=== PATIENT | female | born 1935 | race Caucasian/White ===

== ENCOUNTER 2017-03-11 07:14 | Inpatient (IN) ==
[2017-03-11 08:12] LABS: Basophils % 0.3 %; Eosinophils # 0.1 K/mcL (0.0-0.6); Eosinophils % 0.7 %; Hematocrit 44.1 % (35.3-44.9); Hemoglobin 13.9 g/dL (11.5-15.4); Immature Granulocytes % 0.3 % (0-4); Lymphocytes # 1.7 K/mcL (0.6-4.6); Lymphocytes % 14.1 %; Mean Corpuscular HGB Conc 31.5 g/dL (31.6-35.5); Mean Corpuscular Hemoglobin 26.9 pg (28.0-33.3); Mean Corpuscular Volume 85.5 fL (83.0-100.0); Mean Platelet Volume 11.7 fL (9.4-12.4); Monocytes # 0.8 K/mcL (0.0-1.3); Monocytes % 6.6 %; Neutrophils # 9.3 K/mcL (1.6-8.9); Platelet Count 249 K/mcL (140-400); Red Blood Count 5.16 M/mcL (3.82-4.97); Red Cell Distribution Width 15.3 % (11.5-14.5)
[2017-03-11 08:25] LABS: Alanine Aminotransferase 25 Units/L (7-52); Albumin 3.9 g/dL (3.5-5.7); Albumin/Globulin Ratio 1.3 (1.1-2.2); Alkaline Phosphatase 103 Units/L (34-104); Aspartate Amino Transferase 22 Units/L (13-39); BUN/Creatinine Ratio 22 (6-26); Bilirubin,Total 0.9 mg/dL (0.3-1.0); Blood Urea Nitrogen 20 mg/dL (8-23); Calcium 9.4 mg/dL (8.6-10.3); Carbon Dioxide 25 mEq/L (23-29); Chloride 106 mEq/L (98-107); Globulin 2.9 g/dL (2.4-3.5); Glucose 110 mg/dL (70-105); Osmolality,Calculated 295 (280-300); Sodium 141 mEq/L (136-145); Total Protein 6.8 g/dL (6.4-8.9); eGFR For African Americans > 60 (> 60); eGFR For Non-African Americans 60 (> 60)
[2017-03-11 08:32] LABS: Thyroid Stimulating Hormone 4.167 mcIU/mL (0.340-5.600)
[2017-03-11 09:57] LABS: Bilirubin,Urine Negative (Negative); Blood,Urine Negative (Negative); Clarity,Urine Turbid (Clear); Color,Urine Dark Yellow (Yellow); Glucose,Urine (UA) Normal (Normal); Ketones,Urine Negative (Negative); Leukocyte Esterase,Urine Large (Negative); Nitrite,Urine Positive (Negative); PH,Urine 6.5 pH Units (5.0-8.0); Protein,Urine 30 mg/dL (Neg-Trace); Specific Gravity,Urine 1.022 (1.010-1.025); Urobilinogen,Urine Normal (Normal)
[2017-03-11 09:59] LABS: Bacteria,Urine Many per hpf (None-Few); Hyaline Casts,Urine Moderate per lpf (None-Few); Squamous Epithelial Cell,Urine Many per lpf (None-Few); WBC,Urine 50-100 per hpf (0-3)
[2017-03-11] MEDS ORDERED: Naloxone 0.4 MG/ML INJ IVP PRN (11:22)
[2017-03-11] MEDS ORDERED: *HR* OxyCODONE Immed Rel 5 MG TABLET PO PRN (11:22)
[2017-03-11] MEDS ORDERED: 0.9 % Sodium Chloride 1,000 ML IVC SCH (11:30)
[2017-03-11] MEDS ORDERED: cefTRIAXone 1,000 MG in Water for inj. (sterile) 10 ML IVPB SCH (12:00)
[2017-03-11] MEDS ORDERED: Aspirin 81 MG TAB.CHEW PO ONE (12:16)
[2017-03-11] MEDS ORDERED: *HR* Metoprolol 5 MG/5 ML VIAL IVP ONE ×2 (12:19→16:27)
--- NOTE | 2017-03-11 12:19 | Internal Med History&Physical ---
Date of Encounter: 03/11/17 Time of Encounter: 12:16 Assessment and Plan (1) UTI (urinary tract infection) Current visit: Yes Status: Suspected Suspected Patient is asymptomatic UA with positive nitrites, LE< many SQ cells, mid hematuria Patient does not have sepsis-HR is elevated from Afib, she has missed her day's dose of BB, no fever, WBC 68705. Oral mucosa is dry Send Urine culture now-not previously sent Follow culture reports Continue Ceftriaxone 1g daily Qualifiers: Urinary tract infection type: acute cystitis Hematuria presence: with hematuria Qualified Code(s): N30.01 - Acute cystitis with hematuria (2) Weakness Current visit: Yes Status: Acute Patient with chronic weakness, possibly related to her LEwy-BOdy dementia, associated with recurrent falls. Exacerbation or worsening may be due to UTI Per family, patient is receiving outpatient occupational and physical therapy. Fall precautions. Physical therapy and occupational therapy review. (3) Afib Current visit: Yes Status: Chronic Controlled at presentation, due to patient missing her medications. PCM present Given 1 L saline gently. Give metoprolol IV 1 time. Resume home medications. Patient not on anticoagulation due to recurrent falls. Continue aspirin only. Qualifiers: Atrial fibrillation type: chronic Qualified Code(s): I48.2 - Chronic atrial fibrillation (4) Lewy body dementia with behavioral disturbance Current visit: Yes Status: Chronic High risk for delirium Per family, patient has hx of agitation Continue home meds Haldol prn High risk for delirium, encourage orientation and reorientation (5) Hypertension Current visit: Yes Status: Chronic Controlled Continue home meds Qualifiers: Hypertension type: essential hypertension Qualified Code(s): I10 - Essential (primary) hypertension (6) DVT prophylaxis Current visit: Yes Status: Acute SQ heparin (7) Code status needs review Current visit: Yes Status: Acute Patient's states patient is DNR and he has paperwork, Dr. Man at the bedside looked extremely surprised and became very emotional and crying that she is not aware of this decision. However, the patient's is her power of [place] attorney and they have a living will, he has the papers at home and he will bring the papers later today, and we will address code status at that time. For now the patient is full code. Internal Medicine - H&P: HPI Chief complaint: Weakness Admitted From: Home Plans for Post Hospital Care: Home History of present illness: Ms. Osorio is a 81 year old female seen and evaluated at bedside with her and daughter She has a past medical history of chronic atrial fibrillation not on anticoagulation due to recurrent falls and risk of bleeding, PCM present, hypertension, and neuropathy dementia. She presented in continue her family with complaints of weakness, uncontrolled blood pressure. However, her blood pressure has been controlled since admission. The patient's family also complained of the patient's progressive weakness, and worsening in the past 3 days Her he has had to be holding onto her to prevent her from falling and this has been worsened in the past 3 days. She has chronic weakness and is getting physical therapy at an outside facility. She has no other symptoms. Review of systems is unremarkable. We will call from admission reveals tachycardia, white blood cell 12,000 urine analysis with nitrites and large leukocyte esterase, however gearing is also has lots of squamous cells. Head CT shows chronic small vessel disease changes. The patient is clinically stable She has not taken any of her medications today due to being in the ER. She will be placed on observation for UTI management and review by PTOT for weakness Patient's states she is DNR/DNI and has paperwork for that, however, her daughter was very surprised and emotional about this information, her is her POA. We will place the patient on full code till her brings her paperwork, the patient has dementia and does not have decisional capacity. Plan of care discussed with family, verbalized understanding. Past Med Surg Social Fam HX - Past Medical History Medical history: atrial fibrillation, dementia, GERD, hyperlipidemia, hypertension, valvular heart disease Psychiatric history: no psych history - Past Surgical History Surgical History: cataract, hip replacement, pacemaker/AICD - Social History Smoking Status: Never smoker Smokeless Tobacco Status: No Alcohol use: none Drug use: none Internal Medicine - H&P: Meds Aspirin 81 mg PO DAILY 01/02/16 [History] Atorvastatin [Lipitor] 40 mg PO HS 01/02/16 [History] Bupropion HCl [Wellbutrin Xl] 300 mg PO QAM 01/02/16 [History] Calcium Carbonate/Vitamin D3 [Calcium 500 + Vit D 200 Caplet] 1 each PO DAILY [History] Cyanocobalamin (Vitamin B-12) [Vitamin B12] 1,000 mcg PO DAILY 01/02/16 [History ] Docusate [Colace] 100 mg PO DAILY PRN 01/02/16 [History] FLUoxetine HCl [Prozac] 10 mg PO QAM 01/02/16 [History] Folic Acid 0.4 mg PO DAILY 01/02/16 [History] Metoprolol [Lopressor] 75 mg PO BID 01/02/16 [History] Quetiapine Fumarate [Seroquel] 50 mg PO HS 01/02/16 [History] 3 Allergy/AdvReac Type Severity Reaction Status Date / Time No Known Allergies Allergy Verified 03/11/17 07:27 All Systems PM: A 10-system review of systems was performed and is negative for pertinent findings except as documented above in the HPI. - Constitutional Constitutional: no chills, no fever(s), no night sweats - EENT Eyes: no change in vision, no discharge, no pain, no photophobia Ears: no ear discharge, no ear pain, no tinnitus Nose, mouth and throat: no dysphagia, no nasal discharge, no neck pain, no sore throat - Cardiovascular Cardiovascular ROS IM: no chest pain, no diaphoresis, no dyspnea, no lightheadedness, no palpitations, no syncope - Respiratory Respiratory: no cough, no dyspnea, no wheezing, no excessive phlegm production - Gastrointestinal Gastrointestinal: no abdominal pain, no diarrhea, no hematemesis, no hematochezia, no melena, no nausea, no vomiting - Genitourinary Genitourinary: no change in urinary stream, no dysuria, no flank pain, no hematuria - Musculoskeletal Musculoskeletal ROS IM: muscle weakness - Integumentary Integumentary IM: no rash, no unusual bruising - Neurological Neurological ROS: memory loss, no confusion, no convulsions, no focal weakness, no numbness, no tingling, no tremor(s) - Hematologic/Lymphatic Hematologic/Lymphatic: no easy bruising - Constitutional Vitals: Temp Pulse Resp BP Pulse Ox 98.0 F 89 20 156/96 94 03/11/17 07:17 03/11/17 08:00 03/11/17 08:00 03/11/17 08:00 03/11/17 08:00 General appearance: Present: A&O X 2, pleasant, no acute distress - Head Head exam: Present: atraumatic, normocephalic - Eye Eye exam: Present: PERRL, conjuntiva pink, sclera anicteric Pupils: Present: PERRL - Neck Neck exam general surgery: Present: supple, trachea midline. Absent: lymphadenopathy - Respiratory Respiratory exam: Present: CTAB. Absent: accessory muscle use, rales, rhonchi, wheezes Additional comments: PCM pocket clean and dry - Cardiovascular Cardiovascular exam: Present: irregular rhythm, +S1, +S2, tachycardia. Absent: diastolic murmur, gallop, rubs, systolic murmur - GI/Abdominal GI/Abdominal exam: Present: normal bowel sounds, soft, no peritoneal signs. Absent: distended, tenderness - Extremities Exam Extremities exam: Present: warm, radial pulses palpable and symmetrical. Absent : calf tenderness, cyanotic, pedal edema - Neurological Exam Neurological exam: Present: alert, CN II-XII intact, oriented X3, no focal deficits. Absent: pronater drift, facial droop, speech deficit - Skin Skin exam: Present: dry, intact Internal Med - H&P Results - Labs CBC & Chem 7: 03/11/17 07:47 03/11/17 07:47 Labs: Short CBC 03/11/17 Range/Units 07:47 WBC 12.0 H (4.3-11.1) K/mcL Hgb 13.9 (11.5-15.4) g/dL Hct 44.1 (35.3-44.9) % Plt Count 249 (140-400) K/mcL Neutrophils # 9.3 H (1.6-8.9) K/mcL BMP 03/11/17 07:47 Sodium 141 Potassium 4.0 Chloride 106 Carbon Dioxide 25 BUN 20 Creatinine 0.90 Glucose 110 H Calcium 9.4 Cardiac Enzymes 03/11/17 Range/Units 07:47 Troponin I < 0.03 (< 0.04) ng/mL Liver Function 03/11/17 Range/Units 07:47 Total Bilirubin 0.9 (0.3-1.0) mg/dL AST 22 (13-39) Units/L ALT 25 (7-52) Units/L Alkaline Phosphatase 103 (34-104) Units/L Albumin 3.9 (3.5-5.7) g/dL Urine 03/11/17 Range/Units 09:45 Urine Color Dark Yellow (Yellow) Urine Clarity Turbid A (Clear) Urine pH 6.5 (5.0-8.0) pH Units Ur Specific [place] 1.022 (1.010-1.025) Urine Protein 30 H (Neg-Trace) mg/dL Urine Glucose (UA) Normal (Normal) mg/dL - Impressions ITS Impressions Chest X-Ray 03/11/17 07:38 IMPRESSION: Mild bibasilar airspace disease, which may be due to atelectasis, edema or pneumonia. Suggestion of a trace amount of pleural fluid D/ / Doc Siu MD / Doc Siu MD Interpreting Provider: Doc Siu MD Head CT 03/11/17 07:38 IMPRESSION: No acute intracranial abnormality. Findings compatible with age related atrophy and likely chronic small vessel ischemic change. D/ / Arnav Antonio MD / Arnav Antonio MD Interpreting Provider: Arnav Antonio MD
[2017-03-11] MEDS: cefTRIAXone 1,000 MG in Water for inj. (sterile) 10 ML IVPB SCH (16:06)
[2017-03-12] MEDS: Ondansetron 4 MG/2 ML VIAL IVP PRN (00:38)
[2017-03-12 04:56] LABS: Basophils % 0.2 %; Eosinophils # 0.1 K/mcL (0.0-0.6); Eosinophils % 0.4 %; Hemoglobin 13.6 g/dL (11.5-15.4); Immature Granulocytes % 0.5 % (0-4); Lymphocytes # 2.1 K/mcL (0.6-4.6); Lymphocytes % 15.9 %; Mean Corpuscular HGB Conc 31.6 g/dL (31.6-35.5); Mean Corpuscular Hemoglobin 27.1 pg (28.0-33.3); Mean Corpuscular Volume 85.7 fL (83.0-100.0); Mean Platelet Volume 11.8 fL (9.4-12.4); Monocytes # 0.8 K/mcL (0.0-1.3); Monocytes % 6.3 %; Neutrophils # 9.9 K/mcL (1.6-8.9); Platelet Count 237 K/mcL (140-400); Red Blood Count 5.02 M/mcL (3.82-4.97); Red Cell Distribution Width 15.5 % (11.5-14.5); Segmented Neutrophils % 76.7 %
[2017-03-12 05:27] LABS: BUN/Creatinine Ratio 24 (6-26); Blood Urea Nitrogen 22 mg/dL (8-23); Carbon Dioxide 22 mEq/L (23-29); Chloride 111 mEq/L (98-107); Glucose 119 mg/dL (70-105); Osmolality,Calculated 300 (280-300); Potassium 3.7 mEq/L (3.5-5.1); Sodium 143 mEq/L (136-145); eGFR For African Americans > 60 (> 60); eGFR For Non-African Americans 60 (> 60)
[2017-03-12] MEDS: *HR* Enoxaparin 40 MG/0.4 ML SYRINGE SQ SCH (05:59)
[2017-03-12] MEDS: FLUoxetine HCl 10 MG CAPSULE PO SCH (08:34)
[2017-03-12] MEDS: Aspirin 81 MG TAB.CHEW PO SCH (08:34)
[2017-03-12] MEDS: BuPROPion XL (24 HR) 150 MG TABLET PO SCH (08:34)
[2017-03-12] MEDS: Cholecalciferol (D-3) 1,000 UNIT TABLET PO SCH (08:34)
[2017-03-12] MEDS: Cyanocobalamin (B-12) 1,000 MCG TABLET PO SCH (08:35)
[2017-03-12] MEDS: Folic Acid 1 MG TABLET PO SCH (08:35)
[2017-03-12] MEDS ORDERED: NON-FORMULARY MEDICATION 1 EACH EACH (Calcium Carbonate/Vitamin D3 [Calcium 500-Vit D3 200 PO SCH (09:00)
--- NOTE | 2017-03-12 14:30 | Cardiology Consult Note ---
<Sunil Fan - Last Filed: 03/12/17 14:28> Date of Encounter: 03/12/17 Time of Encounter: 14:28 Assessment and Plan (1) Atrial fibrillation with RVR Current Visit: Yes Status: Acute Patient is experiencing shortness of breath, dizziness, palpitations. He is in A. fib with RVR with a rate in the 110s to 120s. EKG reveals nonspecific ST changes in the leads 2, V5, V6. This is most likely due to the atrial fibrillation with RVR. Patient is hypertensive at 149/101. Chest x-ray is non- determinant revealing atelectasis vs edema vs pneumonia. Patient does have elevated BNP at 55. However, clinically, patient does not appear to be edematous. Lung exam does not reveal rales. Patient does however have a urinary tract infection. She is currently being treated with Rocephin per hospitalist team. The patient is most likely in atrial fibrillation with RVR secondary to her urinary tract infection. TSH was obtained and was within normal limits. Give 15 mg IV push Cardizem. Start Cardizem drip 5 mcg per minute. Titrate to target heart rate less than 100. Monitor blood pressure. Continue aspirin 81 mg daily. Patient is on 40 mg subcutaneous once daily Lovenox for DVT prophylaxis. There was discussion recently about discontinuation of anticoagulation secondary to risk for bleeding secondary to patient's recurrent falls. Family decided to discontinue anticoagulation and remain on aspirin at that time. Lopressor 75 mg twice daily Atorvastatin 40 mg once daily (2) UTI (urinary tract infection) Current Visit: Yes Status: Suspected Continue management per hospitalist Qualifiers: Urinary tract infection type: acute cystitis Hematuria presence: with hematuria Qualified Code(s): N30.01 - Acute cystitis with hematuria (3) Nausea and vomiting Current Visit: No Status: Acute Patient states this has resolved. Patient does have negative CT scan of head. Qualifiers: Vomiting type: unspecified Vomiting Intractability: non-intractable Qualified Code(s): R11.2 - Nausea with vomiting, unspecified Discussion w patient/family: The assessment and plan as outlined above was discussed with the patient and/or family members who expressed understanding and agreement. All questions were answered. Thank you for involving us in the care of your patient. Please call with any questions. History of Present Illness Consult date: 03/12/17 Requesting physician: Hortencia Davis Consult reason: a-fib with RVR Chief complaint: SOB, palpitations History of present illness: Ms. Osorio is a 81 year old female with past medical history of lupus or dementia , hypothyroidism, atrial fibrillation, placement of atrial pacemaker, who we were consulted because of patient being in A. fib with RVR. Patient states that her last 4 days, she has had shortness of breath, dizziness, feeling palpitations in her chest. She denies any chest pain, pressure, tightness. Patient denies any cough, hemoptysis, history of DVTs, PE, unilateral leg swelling. Patient does have known history of atrial fibrillation, however, has never symptomatic with it. Patient was having episodes of nausea vomiting last week and was recently diagnosed with urinary tract infection in the hospital. Past Med Surg Social Fam HX - Past Medical History Medical history: atrial fibrillation, dementia, GERD, hyperlipidemia, hypertension, valvular heart disease Psychiatric history: no psych history - Past Surgical History Surgical History: cataract, hip replacement, pacemaker/AICD - Social History Smoking Status: Never smoker Smokeless Tobacco Status: No Alcohol use: none Drug use: none Medications and Allergies Aspirin 81 mg PO DAILY 01/02/16 [History] Atorvastatin [Lipitor] 40 mg PO HS 01/02/16 [History] Bupropion HCl [Wellbutrin Xl] 300 mg PO QAM 01/02/16 [History] Calcium Carbonate/Vitamin D3 [Calcium 500 + Vit D 200 Caplet] 1 each PO DAILY [History] Cyanocobalamin (Vitamin B-12) [Vitamin B12] 1,000 mcg PO DAILY 01/02/16 [History ] Docusate [Colace] 100 mg PO DAILY PRN 01/02/16 [History] FLUoxetine HCl [Prozac] 10 mg PO QAM 01/02/16 [History] Folic Acid 0.4 mg PO DAILY 01/02/16 [History] Metoprolol [Lopressor] 75 mg PO BID 01/02/16 [History] Quetiapine Fumarate [Seroquel] 50 mg PO HS 01/02/16 [History] Vit C/E/Zn/Coppr/Lutein/Zeaxan [Preservision Areds 2 Softgel] 1 cap PO BID 03/11 [History] Diltiazem HCl [Cardizem LA] 300 mg PO DAILY 03/13/17 [History] Galantamine [Razadyne] 8 mg PO BID 03/13/17 [History] 3 Allergy/AdvReac Type Severity Reaction Status Date / Time No Known Allergies Allergy Verified 03/11/17 07:27 All Systems Review: A 10-system review of systems was performed and is negative for pertinent findings except as documented above in the HPI. - Constitutional Constitutional: fatigue, frequent falls, headache(s) - Cardiovascular Cardiovascular: diaphoresis, dyspnea at rest, dyspnea on exertion, irregular heart rhythm, lightheadedness, palpitations, no chest pain at rest, no chest pain with exertion, no leg edema - Respiratory Respiratory: dyspnea, no cough, no hemoptysis, no wheezing - Gastrointestinal Gastrointestinal: nausea, no abdominal pain - Neurological Neurological: dizziness Physical Examination Vital Signs, Last 4 Hours Temp Pulse Resp BP Pulse Ox 03/12/17 11:56 97.7 F 122 18 149/101 95 General: Conversant, No Apparent Distress HEENT: Atraumatic, Normocephaly Neck: No JVD Cardiac: No Murmur, Other (Telemetry:: A. fib with RVR in the 110s to 120s) Lungs: Normal Breath Sounds, No Wheeze, Rales, Rhonchi Neuro: Alert and responsive, No focal deficits noted Abdomen: Soft, Non-Tender Skin: No rashes noted on visualized skin Musculoskeletal: No Chest Wall Tenderness Extremities: No Edema Results 03/12/17 03:55 03/12/17 03:55 Lab Results 03/12/17 03/12/17 03:55 03:55 WBC 12.9 H Hgb 13.6 Hct 43.0 Plt Count 237 Sodium 143 Potassium 3.7 Chloride 111 H Carbon Dioxide 22 L BUN 22 Creatinine 0.90 Glucose 119 H Calcium 9.0 Consult Discharge Plan - Plan Referrals: [facility] [place] [Primary Care Provider] - <Ethan Grant - Last Filed: 03/13/17 17:53> Date of Encounter: 03/12/17 Time of Encounter: 17:00 - Attending Attestation I examined this patient and my medical decision-making was reviewed with the Resident Physician. I agree with the documented findings, disposition and treatment plan as described except to the extent set forth below. CC palpitations Pt presents with four day history of progressive shortness of breath, dizziness and palpitations. She denies chest pain. She has a history of asymptomatic atrial fib. Pt also complains of nausea and emesis x 3 days. In the ER she was started on IV diltiazem with improved control of A fib with RVR and improvement in shortness of breath. PE: reviewed above, agree IMP: 1. Paroxysmal Afib with RVR, ventricular response rate controlled on IV diltiazem, will interrogate PPMK to evaluate a fib burden, continue po metoprolol tartrate, switch to po diltiazem. Will order echocardiogram to evaluate LV function, left atrial size 2. UTI: cultures pending, antibiotics per primary service 3. Nausea and emesis: secondary to UTI, improving. 4. Hypertension: better controlled on current medications Assessment and Plan Discussion w patient/family: The assessment and plan as outlined above was discussed with the patient and/or family members who expressed understanding and agreement. All questions were answered. Thank you for involving us in the care of your patient. Please call with any questions. History of Present Illness History of present illness: Ms. Osorio is a 81 year old female All Systems Review: A 10-system review of systems was performed and is negative for pertinent findings except as documented above in the HPI. Physical Examination Vital Signs, Last 4 Hours Temp Pulse Resp BP Pulse Ox 03/13/17 16:02 97.9 F 100 15 130/83 91 03/13/17 14:44 97.5 F L 104 16 141/84 95 Results 03/13/17 13:51 03/13/17 13:51 Lab Results 03/13/17 03/13/17 03/13/17 09:22 13:51 13:51 WBC 13.2 H Hgb 12.7 Hct 39.9 Plt Count 216 D-Dimer 1631 H Sodium 137 Potassium 3.7 Chloride 108 H Carbon Dioxide 17 L BUN 19 Creatinine 0.74 Glucose 103 Calcium 9.0 Magnesium 1.8
[2017-03-12] MEDS: cefTRIAXone 1,000 MG in Water for inj. (sterile) 10 ML IVPB SCH (14:31)
[2017-03-12] MEDS: Acetaminophen 325 MG TABLET PO PRN (14:56)
--- NOTE | 2017-03-12 17:20 | Electrocardiograph Report ---
[address] [address] Test Date: 2017-03-11 Pat Name: Farzad Head Department: 104 Room: 3B32 Gender: F Drafter Electrical: : 1935 Requested By: Nancy Looney Order Number: [id number] Reading MD: Agustin Nguyễn MD Measurements Intervals [place] Rate: 102 P: -75 [place]: 162 QRS: -57 QRSD: 177 T: 117 QT: 442 QTc: 500 Interpretive Statements ELECTRONIC ATRIAL PACEMAKER ELECTRONIC VENTRICULAR PACEMAKER Electronically Signed On 03-12-2017 17:18:50 EST by Agustin Nguyễn MD
--- NOTE | 2017-03-12 17:39 | Internal Med Progress Note ---
Date of Encounter: 03/12/17 Time of Encounter: 10:30 - Assessment and plan (1) Atrial fibrillation with RVR Current Visit: Yes Status: Acute Assessment and plan: per hx. HR initially controlled however found to be in a-fib with RVR in the afternoon. Cardizem gtt started. Hold on anticoagulation. Cardiology consulted. Cont home BB (2) UTI (urinary tract infection) Current Visit: Yes Status: Suspected Assessment and plan: UA with positive nitrites, LE< many SQ cells, mid hematuria. Cont iV rocpehin. Monitor urine cx. Qualifiers: Urinary tract infection type: acute cystitis Hematuria presence: with hematuria Qualified Code(s): N30.01 - Acute cystitis with hematuria (3) Hypertension Current Visit: Yes Status: Chronic Assessment and plan: per hx. BP apparently uncontrolled at home with SBPs in 180s. BP controlled while inpatient. Cont home BP medication. Monitor BP and titrate PRN Qualifiers: Hypertension type: essential hypertension Qualified Code(s): I10 - Essential (primary) hypertension (4) Lewy body dementia with behavioral disturbance Current Visit: Yes Status: Chronic Assessment and plan: per hx. Mentation appears at baseline. Supportive care (5) DVT prophylaxis Current Visit: Yes Status: Acute Assessment and plan: lovenox - Subjective Interval history: Seen and examined at bedside. Patient is new to me information obtained from mostly chart review as patient is demented and does no was ambulating at home with . Daughter also reports patient's Patient says she feels fine on my exam. mentation appears at baseline. - Constitutional Vitals: Temp Pulse Resp BP Pulse Ox 97.7 F 122 18 149/101 95 03/12/17 11:56 03/12/17 11:56 03/12/17 11:56 03/12/17 11:56 03/12/17 11:56 General appearance: Present: A&O X 2, pleasant, no acute distress - Head Head exam: Present: atraumatic, normocephalic - Eye Eye exam: Present: PERRL, conjuntiva pink, sclera anicteric Pupils: Present: PERRL - Neck Neck exam general surgery: Present: supple, trachea midline. Absent: lymphadenopathy - Respiratory Respiratory exam: Present: CTAB. Absent: accessory muscle use, rales, rhonchi, wheezes - Cardiovascular Cardiovascular exam: Present: RRR, +S1, +S2. Absent: diastolic murmur, gallop, rubs, systolic murmur - GI/Abdominal GI/Abdominal exam: Present: normal bowel sounds, soft, no peritoneal signs. Absent: distended, tenderness - Extremities Exam Extremities exam: Present: warm, radial pulses palpable and symmetrical. Absent : calf tenderness, cyanotic, pedal edema - Neurological Exam Neurological exam: Present: CN II-XII intact, oriented X3, no focal deficits. Absent: pronater drift, facial droop, speech deficit - Skin Skin exam: Present: dry, intact Internal Medicine: Result - Labs CBC & Chem 7: 03/12/17 03:55 03/12/17 03:55 Labs: Short CBC 03/12/17 Range/Units 03:55 WBC 12.9 H (4.3-11.1) K/mcL Hgb 13.6 (11.5-15.4) g/dL Hct 43.0 (35.3-44.9) % Plt Count 237 (140-400) K/mcL Neutrophils # 9.9 H (1.6-8.9) K/mcL BMP 03/12/17 03:55 Sodium 143 Potassium 3.7 Chloride 111 H Carbon Dioxide 22 L BUN 22 Creatinine 0.90 Glucose 119 H Calcium 9.0 Consult Discharge Plan - Plan Referrals: Wu Alexandra MD [Primary Care Provider] -
--- NOTE | 2017-03-12 22:53 | Emergency Department Note ---
Disposition Clinical Impression: Weakness Disposition: Admitted As Inpatient General Adult HPI - General Chief complaint: ED Nausea/Vomiting/Diarrhea Stated complaint: High BP/Weakness/Vomiting Time Seen by Provider: 03/11/17 07:23 Source: family Limitations: no limitations Nursing Notes Reviewed: Yes Vital Signs Reviewed: Yes - History of Present Illness HPI Narrative: 81-year-old female presents with concern for hypertension as well as weakness. She has complaints of blood pressure that has been in the 130s systolic over the past 24-48 hours. She has close monitoring by her surveying crew rodman of her blood pressure. She is concerned that her weakness is caused by her underlying hypertension. She denies nausea, vomiting, recent fall, focal weakness. General: No acute distress HEENT: Pupils equal and reactive to light, extraoccular muscle movement is normal, TMS are clear bilaterally. Heart: RRR, No murmor rub or gallop Lungs: lungs clear, no wheezing, rales or ronchi. ABD: SNT, no focal areas or tenderness, no guarding or rebound tenderness. Extremities: No cyanosis, clubbing or edema Neuro: CN 2-12 in tact, no focal deficit. strength 5/5. Medical decision making Findings consistent with urinary tract infection and weakness. No focal neurological deficit. CT scan shows no acute findings. We will start ceftriaxone, proceed with admission for treatment of urinary tract infection in the setting of weakness Pain Scale: 0 - Related Data Home Medications Medication Instructions Recorded Confirmed Aspirin 81 mg PO DAILY 01/02/16 03/11/17 Atorvastatin [Lipitor] 40 mg PO HS 01/02/16 03/11/17 Bupropion HCl [Wellbutrin Xl] 300 mg PO QAM 01/02/16 03/11/17 Calcium Carbonate/Vitamin D3 1 each PO DAILY 01/02/16 03/11/17 [Calcium 500 + Vit D 200 Caplet] Cyanocobalamin (Vitamin B-12) 1,000 mcg PO DAILY 01/02/16 03/11/17 [Vitamin B12] Docusate [Colace] 100 mg PO DAILY PRN 01/02/16 03/11/17 FLUoxetine HCl [Prozac] 10 mg PO QAM 01/02/16 03/11/17 Folic Acid 0.4 mg PO DAILY 01/02/16 03/11/17 Metoprolol [Lopressor] 75 mg PO BID 01/02/16 03/11/17 Quetiapine Fumarate [Seroquel] 50 mg PO HS 01/02/16 03/11/17 Vit C/E/Zn/Coppr/Lutein/Zeaxan 1 cap PO BID 03/11/17 03/11/17 [Preservision Areds 2 Softgel] Allergies Allergy/AdvReac Type Severity Reaction Status Date / Time No Known Allergies Allergy Verified 03/11/17 07:27 All systems ED: reviewed and negative except as stated. Review of Systems: As Per HPI Past Medical History - Past Medical History Medical history: Reports: atrial fibrillation, dementia, GERD, hyperlipidemia, hypertension, valvular heart disease Surgical history: Reports: cataract, hip replacement, pacemaker/AICD Psychiatric history: Reports: no psych history TECHNICAL SUPPORT DIRECTOR history: Reports: no TECHNICAL SUPPORT DIRECTOR history - Social History Smoking Status: Never smoker Smokeless Tobacco Status: No Alcohol use: Reports: none Drug use: Reports: none Physical Exam - General Limitations: no limitations General appearance: alert, in no apparent distress Course Vital Signs Temperature 98.0 F 03/11/17 07:17 Pulse Rate 76 03/11/17 07:17 Respiratory Rate 16 03/11/17 07:17 Blood Pressure 129/94 03/11/17 07:17 O2 Sat by Pulse Oximetry 95 03/11/17 07:17 Temperature 97.8 F 03/12/17 22:42 Pulse Rate 95 03/12/17 22:42 Respiratory Rate 17 03/12/17 22:42 Blood Pressure 131/82 03/12/17 22:42 O2 Sat by Pulse Oximetry 95 03/12/17 22:42 Oxygen Delivery Oxygen Delivery Room Air Medical Decision Making - Lab Data Result diagrams: 03/12/17 03:55 03/12/17 03:55 Lab Results 03/11/17 03/11/17 03/11/17 Range/Units 07:47 07:47 07:47 WBC 12.0 H (4.3-11.1) K/mcL RBC 5.16 H (3.82-4.97) M/mcL Hgb 13.9 (11.5-15.4) g/dL Hct 44.1 (35.3-44.9) % MCV 85.5 (83.0-100.0) fL MCH 26.9 L (28.0-33.3) pg MCHC 31.5 L (31.6-35.5) g/dL RDW 15.3 H (11.5-14.5) % Plt Count 249 (140-400) K/mcL MPV 11.7 (9.4-12.4) fL Immature Gran % 0.3 (0-4) % Seg Neutrophils % 78.0 % Lymphocytes % 14.1 % Monocytes % 6.6 % Eosinophils % 0.7 % Basophils % 0.3 % Neutrophils # 9.3 H (1.6-8.9) K/mcL Lymphocytes # 1.7 (0.6-4.6) K/mcL Monocytes # 0.8 (0.0-1.3) K/mcL Eosinophils # 0.1 (0.0-0.6) K/mcL Basophils # 0.0 (0.0-0.2) K/mcL Sodium 141 (136-145) mEq/L Potassium 4.0 (3.5-5.1) mEq/L Chloride 106 (98-107) mEq/L Carbon Dioxide 25 (23-29) mEq/L BUN 20 (8-23) mg/dL Creatinine 0.90 (0.60-1.20) mg/dL Est GFR ( Amer) > 60 (> 60) Est GFR (Non-Af Amer) 60 (> 60) BUN/Creatinine Ratio 22 (6-26) Glucose 110 H (70-105) mg/dL Calculated Osmolality 295 (280-300) Lactic Acid 1.9 (0.5-2.2) mmol/L Calcium 9.4 (8.6-10.3) mg/dL Total Bilirubin 0.9 (0.3-1.0) mg/dL AST 22 (13-39) Units/L ALT 25 (7-52) Units/L Alkaline Phosphatase 103 (34-104) Units/L Troponin I (< 0.04) ng/mL B-Natriuretic Peptide (Less than 100) pg/mL Serum Total Protein 6.8 (6.4-8.9) g/dL Albumin 3.9 (3.5-5.7) g/dL Globulin 2.9 (2.4-3.5) g/dL Albumin/Globulin Ratio 1.3 (1.1-2.2) TSH 4.167 (0.340-5.600) mcIU/mL Urine Color (Yellow) Urine Clarity (Clear) Urine pH (5.0-8.0) pH Units Ur Specific [place] (1.010-1.025) Urine Protein (Neg-Trace) mg/dL Urine Glucose (UA) (Normal) mg/dL Urine Ketones (Negative) mg/dL Urine Blood (Negative) Urine Nitrite (Negative) Urine Bilirubin (Negative) Urine Urobilinogen (Normal) mg/dL Ur Leukocyte Esterase (Negative) Urine Microscopic RBC (0-3) per hpf Urine Microscopic WBC (0-3) per hpf Ur Squamous Epith Cells (None-Few) per lpf Urine Bacteria (None-Few) per hpf Hyaline Casts (None-Few) per lpf Ur Culture Indicated? (NO) 03/11/17 03/11/17 03/11/17 Range/Units 07:47 07:47 09:45 WBC (4.3-11.1) K/mcL RBC (3.82-4.97) M/mcL Hgb (11.5-15.4) g/dL Hct (35.3-44.9) % MCV (83.0-100.0) fL MCH (28.0-33.3) pg MCHC (31.6-35.5) g/dL RDW (11.5-14.5) % Plt Count (140-400) K/mcL MPV (9.4-12.4) fL Immature Gran % (0-4) % Seg Neutrophils % % Lymphocytes % % Monocytes % % Eosinophils % % Basophils % % Neutrophils # (1.6-8.9) K/mcL Lymphocytes # (0.6-4.6) K/mcL Monocytes # (0.0-1.3) K/mcL Eosinophils # (0.0-0.6) K/mcL Basophils # (0.0-0.2) K/mcL Sodium (136-145) mEq/L Potassium (3.5-5.1) mEq/L Chloride (98-107) mEq/L Carbon Dioxide (23-29) mEq/L BUN (8-23) mg/dL Creatinine (0.60-1.20) mg/dL Est GFR ( Amer) (> 60) Est GFR (Non-Af Amer) (> 60) BUN/Creatinine Ratio (6-26) Glucose (70-105) mg/dL Calculated Osmolality (280-300) Lactic Acid (0.5-2.2) mmol/L Calcium (8.6-10.3) mg/dL Total Bilirubin (0.3-1.0) mg/dL AST (13-39) Units/L ALT (7-52) Units/L Alkaline Phosphatase (34-104) Units/L Troponin I < 0.03 (< 0.04) ng/mL B-Natriuretic Peptide 955 H (Less than 100) pg/mL Serum Total Protein (6.4-8.9) g/dL Albumin (3.5-5.7) g/dL Globulin (2.4-3.5) g/dL Albumin/Globulin Ratio (1.1-2.2) TSH (0.340-5.600) mcIU/mL Urine Color Dark Yellow (Yellow) Urine Clarity Turbid A (Clear) Urine pH 6.5 (5.0-8.0) pH Units Ur Specific [place] 1.022 (1.010-1.025) Urine Protein 30 H (Neg-Trace) mg/dL Urine Glucose (UA) Normal (Normal) mg/dL Urine Ketones Negative (Negative) mg/dL Urine Blood Negative (Negative) Urine Nitrite Positive A (Negative) Urine Bilirubin Negative (Negative) Urine Urobilinogen Normal (Normal) mg/dL Ur Leukocyte Esterase Large H (Negative) Urine Microscopic RBC 3-5 H (0-3) per hpf Urine Microscopic WBC 50-100 H (0-3) per hpf Ur Squamous Epith Cells Many H (None-Few) per lpf Urine Bacteria Many H (None-Few) per hpf Hyaline Casts Moderate H (None-Few) per lpf Ur Culture Indicated? NO. (NO)
[2017-03-13] MEDS: *HR* Enoxaparin 40 MG/0.4 ML SYRINGE SQ SCH (06:36)
--- NOTE | 2017-03-13 08:52 | Cardiology Progress Note ---
<Sunil Fan - Last Filed: 03/13/17 14:45> Date of Encounter: 03/13/17 Time of Encounter: 08:47 Assessment and Plan (1) Atrial fibrillation with RVR Current Visit: Yes Status: Acute Patient is experiencing shortness of breath, dizziness, palpitations. She is in A. fib with a rate that is now in the 90s. EKG reveals nonspecific ST changes in the leads 2, V5, V6. This is most likely due to the atrial fibrillation with RVR. Patient is hypertensive at 151/91. Chest x-ray is non- determinant revealing atelectasis vs edema vs pneumonia. However, clinically, patient does not appear to be edematous. Lung exam does not reveal rales. Patient does however have a urinary tract infection and is currently being treated with Rocephin per hospitalist team. Patient still has oxygen saturation of 92% on 1.5 L of O2 via nasal cannula. Denies any history of COPD or need of oxygen in the past. D-dimer order and is elevated at 1631. Ordered CTA. CTA reveals Bilateral pleaural effusions with concern for Right Heart failure. Cardizem drip was at 10mg/hr. Will start Cardizem 180mg extended release BID. Give 40 mg IV Lasix for diuresis. Obtain Echocardiogram. Last echo revealed EF 70% with moderate LVH and Left Atrial dilation. Monitor Heart Rate Monitor blood pressure. Continue aspirin 81 mg daily. Patient is on 40 mg subcutaneous once daily Lovenox for DVT prophylaxis. There was discussion recently about discontinuation of anticoagulation secondary to risk for bleeding secondary to patient's recurrent falls. Family decided to discontinue anticoagulation and remain on aspirin at that time. Lopressor 75 mg twice daily Atorvastatin 40 mg once daily (2) UTI (urinary tract infection) Current Visit: Yes Status: Suspected Continue management per hospitalist Qualifiers: Urinary tract infection type: acute cystitis Hematuria presence: with hematuria Qualified Code(s): N30.01 - Acute cystitis with hematuria (3) Nausea and vomiting Current Visit: No Status: Acute Patient states this has resolved. Patient does have negative CT scan of head. Qualifiers: Vomiting type: unspecified Vomiting Intractability: non-intractable Qualified Code(s): R11.2 - Nausea with vomiting, unspecified Discussion w patient/family: The assessment and plan as outlined above was discussed with the patient and/or family members who expressed understanding and agreement. All questions were answered. Thank you for involving us in the care of your patient. Please call with any questions. Subjective Principal diagnosis: afib with RVR, UTI Interval history: No events overnight. Per , patient is having some shortness of breath and has noticed that she is taking deeper breaths in. No chest pain, pressure, tightness. She still however reports some dizziness. Objective Vital Signs, Last 4 Hours Temp Pulse Resp BP Pulse Ox 03/13/17 06:45 97.9 F 101 17 151/91 91 General: Conversant, No Apparent Distress HEENT: Atraumatic, Normocephaly Cardiac: Other (Telemetry: A. fib with RVR in the 100s) Lungs: Normal Breath Sounds, No Wheeze, Rales, Rhonchi Neuro: Alert and responsive, No focal deficits noted Abdomen: Soft Skin: No rashes noted on visualized skin Musculoskeletal: No Chest Wall Tenderness Extremities: No Edema Results 03/13/17 13:51 03/13/17 13:51 Consult Discharge Plan - Plan Referrals: Wu vigil MD [Primary Care Provider] - <Ethan Grant - Last Filed: 03/13/17 18:01> Date of Encounter: 03/13/17 Time of Encounter: 16:00 Assessment and Plan Discussion w patient/family: The assessment and plan as outlined above was discussed with the patient and/or family members who expressed understanding and agreement. All questions were answered. Thank you for involving us in the care of your patient. Please call with any questions. Objective Vital Signs, Last 4 Hours Temp Pulse Resp BP Pulse Ox 03/13/17 17:19 100 131/93 94 03/13/17 16:02 97.9 F 100 15 130/83 91 03/13/17 14:44 97.5 F L 104 16 141/84 95 Results 03/13/17 13:51 03/13/17 13:51 Lab Results 03/13/17 03/13/17 03/13/17 09:22 13:51 13:51 WBC 13.2 H Hgb 12.7 Hct 39.9 Plt Count 216 D-Dimer 1631 H Sodium 137 Potassium 3.7 Chloride 108 H Carbon Dioxide 17 L BUN 19 Creatinine 0.74 Glucose 103 Calcium 9.0 Magnesium 1.8 - Attending Attestation I examined this patient and my medical decision-making was reviewed with the Resident Physician. I agree with the documented findings, disposition and treatment plan as described except to the extent set forth below. CC: Palpitations, fatigue Pt is very hard of hearing, hx obtained from and daughter at bedside, both reports she is feeling better, more conversant, less short of breath. IMP 1. A fib with RVR, ventricular response rate better controlled on IV diltiazem, switching to orals, begin Cardiozem CD 180 mg bid, monitor heart rate response, long discussion of risks and benefits of systemic anticoagulation for primary stroke risk reduction, pt and family decline, will continue on ASA 81 mg q d. 2. UTI - on IV Rocephin 3. Elevated D-Dimer, CTA negative for PE
[2017-03-13] MEDS: Folic Acid 1 MG TABLET PO SCH (09:25)
[2017-03-13] MEDS: BuPROPion XL (24 HR) 150 MG TABLET PO SCH (09:25)
[2017-03-13] MEDS: Cyanocobalamin (B-12) 1,000 MCG TABLET PO SCH (09:25)
[2017-03-13] MEDS: Aspirin 81 MG TAB.CHEW PO SCH (09:25)
[2017-03-13] MEDS: Cholecalciferol (D-3) 1,000 UNIT TABLET PO SCH (09:26)
[2017-03-13] MEDS: FLUoxetine HCl 10 MG CAPSULE PO SCH (09:26)
[2017-03-13] MEDS ORDERED: Diltiazem CD (24hr) 300 MG CAPSULE PO SCH (09:45)
[2017-03-13] MEDS: Ondansetron 4 MG/2 ML VIAL IVP PRN (12:45)
[2017-03-13] MEDS: cefTRIAXone 1,000 MG in Water for inj. (sterile) 10 ML IVPB SCH (13:17)
[2017-03-13] MEDS ORDERED: Furosemide 40 MG/4 ML VIAL IVP ONE (13:18)
[2017-03-13 14:08] LABS: Basophils # 0.1 K/mcL (0.0-0.2); Basophils % 0.5 %; Eosinophils # 0.1 K/mcL (0.0-0.6); Hematocrit 39.9 % (35.3-44.9); Hemoglobin 12.7 g/dL (11.5-15.4); Immature Granulocytes % 0.5 % (0-4); Lymphocytes # 1.5 K/mcL (0.6-4.6); Mean Corpuscular HGB Conc 31.8 g/dL (31.6-35.5); Mean Corpuscular Hemoglobin 27.3 pg (28.0-33.3); Mean Corpuscular Volume 85.8 fL (83.0-100.0); Mean Platelet Volume 11.5 fL (9.4-12.4); Monocytes # 0.9 K/mcL (0.0-1.3); Monocytes % 7.1 %; Neutrophils # 10.5 K/mcL (1.6-8.9); Platelet Count 216 K/mcL (140-400); Red Blood Count 4.65 M/mcL (3.82-4.97); Red Cell Distribution Width 15.5 % (11.5-14.5); Segmented Neutrophils % 79.9 %
[2017-03-13 14:43] LABS: BUN/Creatinine Ratio 26 (6-26); Blood Urea Nitrogen 19 mg/dL (8-23); Carbon Dioxide 17 mEq/L (23-29); Chloride 108 mEq/L (98-107); Glucose 103 mg/dL (70-105); Magnesium 1.8 mg/dL (1.6-2.6); Osmolality,Calculated 287 (280-300); Potassium 3.7 mEq/L (3.5-5.1); Sodium 137 mEq/L (136-145); eGFR For African Americans > 60 (> 60); eGFR For Non-African Americans > 60 (> 60)
--- NOTE | 2017-03-13 16:18 | Electrocardiograph Report ---
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
[2017-03-13] MEDS: Acetaminophen 325 MG TABLET PO PRN (17:30)
[2017-03-13] MEDS ORDERED: Haloperidol Lactate 5 MG/ML VIAL IVP ONE ×2 (21:54→22:29)
[2017-03-13] MEDS ORDERED: Haloperidol Lactate 5 MG/ML VIAL ONE (21:56)
[2017-03-14] MEDS: Diltiazem SR (12hr) 90 MG CAPSULE PO SCH ×2 (08:19→21:05)
[2017-03-14] MEDS: Cyanocobalamin (B-12) 1,000 MCG TABLET PO SCH (08:22)
[2017-03-14] MEDS: Folic Acid 1 MG TABLET PO SCH (08:22)
[2017-03-14] MEDS: Cholecalciferol (D-3) 1,000 UNIT TABLET PO SCH (08:23)
[2017-03-14] MEDS: FLUoxetine HCl 10 MG CAPSULE PO SCH (08:23)
[2017-03-14] MEDS: BuPROPion XL (24 HR) 150 MG TABLET PO SCH (08:23)
[2017-03-14] MEDS: Aspirin 81 MG TAB.CHEW PO SCH (08:47)
--- NOTE | 2017-03-14 09:48 | Cardiology Progress Note ---
<Sunil Fan - Last Filed: 03/14/17 14:15> Date of Encounter: 03/14/17 Time of Encounter: 09:46 Assessment and Plan (1) Atrial fibrillation with RVR Current Visit: Yes Status: Acute Patient's heart rate has increased to atrial fibrillation in the 100s to 120s. I attribute this to patient not taking her oral medications last night. Due to patient's known history of Lewy Body Dementia, patient will probably improve significantly once out of the hospital and in a familiar environment. Echocardiogram reveals severely reduced ejection fraction now and 30%. There is moderate stenosis of the aortic valve. SA is 1.2 cm. Moderate tricuspid regurgitation. Patient may have had a silent myocardial infarction in the last 6 months. Discussed heart catheterization with and daughter. They want to maximize medical therapy at this time as the risks of heart catheterization. Diuresis with 40mg Lasix IV today, will recheck BMP tomorrow to reassess renal function. Start spironolactone 25mg tomorrow. Start Lisinopril 2.5 mg tomorrow. Continue Cardizem 180 Extended Release BID Monitor Heart Rate Monitor blood pressure. Continue aspirin 81 mg daily. No oral anticoagulation medication as this patient is at risk for falls. General decision making was made with patient, , daughter at bedside. Lopressor 75 mg twice daily Atorvastatin 40 mg once daily (2) UTI (urinary tract infection) Current Visit: Yes Status: Suspected Continue management per hospitalist (3) Nausea and vomiting Current Visit: No Status: Acute Patient states this has resolved. Patient does have negative CT scan of head. Discussion w patient/family: The assessment and plan as outlined above was discussed with the patient and/or family members who expressed understanding and agreement. All questions were answered. Thank you for involving us in the care of your patient. Please call with any questions. Subjective Principal diagnosis: afib with RVR, UTI Interval history: Patient had episode of confusion last night. This was when she went for her routine echocardiogram. Was given Haldol for sedation. Patient was refusing to take oral medications last night. Patient took her oral medications at this morning. Patient still complains of some dizziness. This is been constant for her for months. Nurse states that heart rate has been elevated in the 110s and she attributes this to patient not taking medications. Objective Vital Signs, Last 4 Hours Temp Pulse Resp BP Pulse Ox 03/14/17 06:41 97.8 F 120 15 152/99 94 General: Conversant, No Apparent Distress HEENT: Atraumatic, Normocephaly, Mucus Membranes Moist Neck: No JVD, Normal carotid pulses Cardiac: Other (Telemetry: A. fib with RVR in the 100s to 110s.) Lungs: Normal Breath Sounds, Other (Bilateral rales) Neuro: Alert and responsive, No focal deficits noted Abdomen: Soft, Non-Tender Skin: No rashes noted on visualized skin Musculoskeletal: No Chest Wall Tenderness Extremities: No Edema Results 03/13/17 13:51 03/13/17 13:51 Lab Results 03/13/17 03/13/17 03/13/17 09:22 13:51 13:51 WBC 13.2 H Hgb 12.7 Hct 39.9 Plt Count 216 D-Dimer 1631 H Sodium 137 Potassium 3.7 Chloride 108 H Carbon Dioxide 17 L BUN 19 Creatinine 0.74 Glucose 103 Calcium 9.0 Magnesium 1.8 - Imaging and Cardiology Echo: report reviewed Consult Discharge Plan - Plan [facility] - <Ethan Grant - Last Filed: 03/15/17 17:29> Date of Encounter: 03/15/17 Time of Encounter: 20:00 Assessment and Plan Discussion w patient/family: The assessment and plan as outlined above was discussed with the patient and/or family members who expressed understanding and agreement. All questions were answered. Thank you for involving us in the care of your patient. Please call with any questions. Objective Vital Signs, Last 4 Hours Temp Pulse Resp BP Pulse Ox 03/15/17 14:54 97.7 F 104 16 125/89 93 Results 03/13/17 13:51 03/15/17 04:00 Lab Results 03/15/17 04:00 Sodium 141 Potassium 3.1 L Chloride 111 H Carbon Dioxide 21 L BUN 13 Creatinine 0.65 Glucose 91 Calcium 7.8 L Magnesium 1.6 - Attending Attestation I examined this patient and my medical decision-making was reviewed with the Resident Physician. I agree with the documented findings, disposition and treatment plan as described except to the extent set forth below. CC shortness of breath Pt pleasently confused, reports shortness of breath is worse, family at bedside report she has more conversational dyspnea. She denies chest pain, pressure or palpitations. PE: reviewed, agree with above, with addition heart is irregularly irregualer, heart rate 90 to 110 by auscultation, bilat basilar crackles both lungs, decreased breath sounds. IMP: 1 A fib with RVR, ventricular response rate not well controlled after missed doses of medications, is slowly improving. 2. Acute on chronic systolic heart failure, secondary to suspected ischemic cardiomyopathy, less compensated with missed meds, started back on IV lasix, and oral aldactone, will monitor I&Os, shortness of breath..
[2017-03-14] MEDS ORDERED: Furosemide 40 MG/4 ML VIAL IVP ONE (09:56)
[2017-03-14] MEDS ORDERED: Ondansetron ODT 4 MG TAB.RAPDIS SL PRN (10:36)
--- NOTE | 2017-03-14 13:33 | Internal Med Progress Note ---
Date of Encounter: 03/14/17 Time of Encounter: 11:30 - Assessment and plan (1) Acute systolic (congestive) heart failure Current Visit: Yes Status: Acute Assessment and plan: new dx. 02/2017 TTE with EF 30%, indeterminate diastolic dysfunction (EF previously 65% in 2016). BNP 955, CXR concerning for mild pulmonary edema. Appears mildly dyspenic, no peripheral edema. Cont IV lasix, AKIKO, aldactone, BB. Cardiology following. (2) Atrial fibrillation with RVR Current Visit: Yes Status: Acute Assessment and plan: per hx. HR initially controlled however found to be in a-fib with RVR with HRs in 130s. Rate controlled with Cardizem gtt (now off). Cont home BB, CCB added per Cardiology. No anticoagulation due to high fall risk. HR variable on 03/13 secondary to patient not taking evening medicine. Continue plan as noted as above. Monitor on telemetry. (3) Aortic stenosis Current Visit: Yes Status: Acute Assessment and plan: TTE shows moderate aortic stenosis and moderate tricuspid regurgitation. Possibly contributing to weakness. Cardiology following Qualifiers: Cardiac valve disease etiology: etiology unspecified Qualified Code(s): I35.0 - Nonrheumatic aortic (valve) stenosis (4) UTI (urinary tract infection) Current Visit: Yes Status: Suspected Assessment and plan: UA indicative of UTI. Urine cx with pansensitive Escherichia coli. Cont IV rocpehin- day 4 Qualifiers: Urinary tract infection type: acute cystitis Hematuria presence: with hematuria Qualified Code(s): N30.01 - Acute cystitis with hematuria (5) Hypertension Current Visit: Yes Status: Chronic Assessment and plan: per hx. BP apparently uncontrolled at home with SBPs in 180s. BP variable while inpatient. Cont home BB, CCB added for a-fib. Monitor BP and titrate PRN Qualifiers: Hypertension type: essential hypertension Qualified Code(s): I10 - Essential (primary) hypertension (6) Lewy body dementia with behavioral disturbance Current Visit: Yes Status: Chronic Assessment and plan: per hx. Had an episode of worsening confusion 03/13 evening; secondary to a familiar environment and patient was sleeping when staff attempted to perform echo and she was abruptly wakened. Mentation otherwise appears at baseline. Supportive care (7) DVT prophylaxis Current Visit: Yes Status: Acute Assessment and plan: lovenox - Subjective Interval history: Seen and examined at bedside. Patient has dementia and is [employer], therefore unable to provide details. Most history obtained from at bedside. She apparently had an episode of acute confusion yesterday evening; reports that she was sleeping a staff came in to perform echo which startled her. Mentation appears at baseline now. Also reports patient's been complaining of lightheadedness/dizziness since diltiazem was started yesterday. - Constitutional Vitals: Temp Pulse Resp BP Pulse Ox 97.7 F 111 15 154/83 93 03/14/17 09:58 03/14/17 09:58 03/14/17 09:58 03/14/17 09:58 03/14/17 09:58 General appearance: Present: A&O X 2, pleasant, no acute distress - Head Head exam: Present: atraumatic, normocephalic - Eye Eye exam: Present: PERRL, conjuntiva pink, sclera anicteric Pupils: Present: PERRL - Neck Neck exam general surgery: Present: supple, trachea midline. Absent: lymphadenopathy - Respiratory Respiratory exam: Present: CTAB. Absent: accessory muscle use, rales, rhonchi, wheezes - Cardiovascular Cardiovascular exam: Present: irregular rhythm, +S1, +S2, tachycardia. Absent: diastolic murmur, gallop, rubs, systolic murmur - GI/Abdominal GI/Abdominal exam: Present: normal bowel sounds, soft, no peritoneal signs. Absent: distended, tenderness - Extremities Exam Extremities exam: Present: warm, radial pulses palpable and symmetrical. Absent : calf tenderness, cyanotic, pedal edema - Neurological Exam Neurological exam: Present: CN II-XII intact, oriented X3, no focal deficits. Absent: pronater drift, facial droop, speech deficit - Skin Skin exam: Present: dry, intact Internal Medicine: Result - Labs CBC & Chem 7: 03/13/17 13:51 03/13/17 13:51 Labs: Short CBC 03/13/17 Range/Units 13:51 WBC 13.2 H (4.3-11.1) K/mcL Hgb 12.7 (11.5-15.4) g/dL Hct 39.9 (35.3-44.9) % Plt Count 216 (140-400) K/mcL Neutrophils # 10.5 H (1.6-8.9) K/mcL BMP 03/13/17 13:51 Sodium 137 Potassium 3.7 Chloride 108 H Carbon Dioxide 17 L BUN 19 Creatinine 0.74 Glucose 103 Calcium 9.0 - ABG Interpretation ABG results: PT/INR, D-dimer D-Dimer 1631 ng/mLFEU (0-500) H 03/13/17 09:22 - Impressions Impressions Echocardiogram 03/13/17 08:06 Impressions: LVEF 30%. Moderate concentric left ventricular hypertrophy. Indeterminate diastolic function. Normal right ventricular size. Function not evaluated by Doppler. Grossly, it appears low normal to mildly reduced. Moderate-severe mitral regurgitation. Moderately thickened and calcified aortic valve leaflets. Severely reduced systolic opening of the valve leaflets - may be due to decreased cardiac output. Moderate aortic stenosis by ABHAY, 1.2cm2, DI 0.38. Moderate tricuspid regurgitation. At least moderate pulmonary hypertension by TR gradient, 51 mmHg. IVC is not well visualized. Left Ventricular Wall Motion: Rest Echo Findings The apex, apical inferior, mid inferior, basal inferior, apical anterior, mid anterior, basal anterior, apical septal, mid inferior septal, basal inferior septal, apical lateral, mid anterior lateral, basal anterior lateral, mid anterior septal, mid inferior lateral, basal anterior septal and basal inferior lateral lyon were hypokinetic. Findings: Study Quality * Technically adequate exam. ECG Findings * Paced rhythm. Intermittent wilton conduction. Left Ventricle * LVEF 30%. * Moderate concentric left ventricular hypertrophy. * Indeterminate diastolic function. * Normal LV size. Right Ventricle * Normal right ventricular size. Function not evaluated by Doppler. Grossly, it appears low normal to mildly reduced. Left Atrium * Severely dilated left atrium. Right Atrium * Moderately dilated right atrium. Mitral Valve * Moderate mitral annular calcification * Moderate-severe mitral regurgitation. * Mildly calcified mitral valve leaflets. * No mitral stenosis. Aortic Valve * Trace aortic regurgitation. * Aortic valve not well visualized. * Moderately thickened and calcified aortic valve leaflets. Severely reduced systolic opening of the valve leaflets. * Moderate aortic stenosis by valve area, 1.2cm2. DI is 0.38. PV and MG are 2.6m/s, and 13 mmHg respectively, representing low flow. Stroke volume index 28ml/m2. Tricuspid Valve * Normal tricuspid valve structure. * Moderate tricuspid regurgitation. Pulmonic Valve * Pulmonic valve is not well visualized. * No pulmonic stenosis. * Trace pulmonic regurgitation. Pulmonary Artery * Pulmonary artery not well visualized. Aorta * Normally sized aortic root. * Ascending aorta is not well visualized. Pericardium * There is no pericardial effusion present. Device lead * A device lead was visualized in the right atrium and right ventricle. Consult Discharge Plan - Plan Referrals: yaritza,Wu Vanessa MD [Primary Care Provider] -
[2017-03-14] MEDS: *HR* Enoxaparin 40 MG/0.4 ML SYRINGE SQ SCH (16:21)
[2017-03-14] MEDS: Furosemide 40 MG/4 ML VIAL IVP SCH (21:05)
[2017-03-14] MEDS: cefTRIAXone 1,000 MG in Water for inj. (sterile) 10 ML IVPB SCH (21:06)
[2017-03-15 05:01] LABS: BUN/Creatinine Ratio 20 (6-26); Blood Urea Nitrogen 13 mg/dL (8-23); Calcium 7.8 mg/dL (8.6-10.3); Carbon Dioxide 21 mEq/L (23-29); Chloride 111 mEq/L (98-107); Glucose 91 mg/dL (70-105); Magnesium 1.6 mg/dL (1.6-2.6); Osmolality,Calculated 292 (280-300); Potassium 3.1 mEq/L (3.5-5.1); Sodium 141 mEq/L (136-145); eGFR For African Americans > 60 (> 60); eGFR For Non-African Americans > 60 (> 60)
[2017-03-15] MEDS: *HR* Enoxaparin 40 MG/0.4 ML SYRINGE SQ SCH (05:26)
[2017-03-15] MEDS: Diltiazem SR (12hr) 90 MG CAPSULE PO SCH ×2 (08:38→20:51)
[2017-03-15] MEDS: FLUoxetine HCl 10 MG CAPSULE PO SCH (08:38)
[2017-03-15] MEDS: Folic Acid 1 MG TABLET PO SCH (08:38)
[2017-03-15] MEDS: BuPROPion XL (24 HR) 150 MG TABLET PO SCH (08:39)
[2017-03-15] MEDS: Aspirin 81 MG TAB.CHEW PO SCH (08:39)
[2017-03-15] MEDS: Cholecalciferol (D-3) 1,000 UNIT TABLET PO SCH (08:40)
[2017-03-15] MEDS: Cyanocobalamin (B-12) 1,000 MCG TABLET PO SCH (08:40)
[2017-03-15] MEDS: Furosemide 40 MG/4 ML VIAL IVP SCH ×2 (08:41→16:57)
[2017-03-15] MEDS: Spironolactone 25 MG TABLET PO SCH (08:41)
--- NOTE | 2017-03-15 16:50 | Internal Med Progress Note ---
Date of Encounter: 03/15/17 Time of Encounter: 15:00 - Assessment and plan (1) Acute respiratory failure with hypoxia Current Visit: Yes Status: Acute Assessment and plan: Does not wear oxygen at home. Has been requiring supplemental O2 will inpatient. Oxygen titration dropped to 77% on room air with ambulation. Qualifies for home oxygen. Multifactorial with new CHF and A. fib with RVR. Will need to set-up home oxygen (2) Acute systolic (congestive) heart failure Current Visit: Yes Status: Acute Assessment and plan: new dx. 02/2017 TTE with EF 30%, indeterminate diastolic dysfunction (EF previously 65% in 2016). BNP 955, CXR concerning for mild pulmonary edema. Appears mildly dyspenic, no peripheral edema. Cont IV lasix, AKIKO, aldactone, BB. Cardiology following. (3) Atrial fibrillation with RVR Current Visit: Yes Status: Acute Assessment and plan: per hx. HR initially controlled however found to be in a-fib with RVR with HRs in 130s. Rate controlled with Cardizem gtt (now off). Cont home BB, CCB added per Cardiology. No anticoagulation due to high fall risk. HR variable on 03/13 secondary to patient not taking evening medicine. Continue plan as noted as above. Monitor on telemetry. (4) Aortic stenosis Current Visit: Yes Status: Acute Assessment and plan: TTE shows moderate aortic stenosis and moderate tricuspid regurgitation. Possibly contributing to weakness. Cardiology following Qualifiers: Cardiac valve disease etiology: etiology unspecified Qualified Code(s): I35.0 - Nonrheumatic aortic (valve) stenosis (5) UTI (urinary tract infection) Current Visit: Yes Status: Suspected Assessment and plan: UA indicative of UTI. Urine cx with pansensitive Escherichia coli. Cont IV rocpehin- day 4 Qualifiers: Urinary tract infection type: acute cystitis Hematuria presence: with hematuria Qualified Code(s): N30.01 - Acute cystitis with hematuria (6) Hypertension Current Visit: Yes Status: Chronic Assessment and plan: per hx. BP apparently uncontrolled at home with SBPs in 180s. BP variable while inpatient. Cont home BB, CCB added for a-fib. Monitor BP and titrate PRN Qualifiers: Hypertension type: essential hypertension Qualified Code(s): I10 - Essential (primary) hypertension (7) Lewy body dementia with behavioral disturbance Current Visit: Yes Status: Chronic Assessment and plan: per hx. Had an episode of worsening confusion 03/13 evening; secondary to a familiar environment and patient was sleeping when staff attempted to perform echo and she was abruptly wakened. Mentation otherwise appears at baseline. Supportive care (8) DVT prophylaxis Current Visit: Yes Status: Acute Assessment and plan: lovenox - Subjective Interval history: Seen and examined at bedside; most information obtained from as patient has dementia and does not provide details. reports a better night last night. He still feels patient is short of breath, worse with exertion. No complaints of chest pain. would like to discharge home today if possible. - Constitutional Vitals: Temp Pulse Resp BP Pulse Ox 97.7 F 104 16 125/89 93 03/15/17 14:54 03/15/17 14:54 03/15/17 14:54 03/15/17 14:54 03/15/17 14:54 General appearance: Present: A&O X 2, pleasant, no acute distress - Head Head exam: Present: atraumatic, normocephalic - Eye Eye exam: Present: PERRL, conjuntiva pink, sclera anicteric Pupils: Present: PERRL - Neck Neck exam general surgery: Present: supple, trachea midline. Absent: lymphadenopathy - Respiratory Respiratory exam: Present: rales. Absent: accessory muscle use, rhonchi, wheezes - Cardiovascular Cardiovascular exam: Present: RRR, +S1, +S2. Absent: diastolic murmur, gallop, rubs, systolic murmur - GI/Abdominal GI/Abdominal exam: Present: normal bowel sounds, soft, no peritoneal signs. Absent: distended, tenderness - Extremities Exam Extremities exam: Present: warm, radial pulses palpable and symmetrical. Absent : calf tenderness, cyanotic, pedal edema - Neurological Exam Neurological exam: Present: CN II-XII intact, oriented X3, no focal deficits. Absent: pronater drift, facial droop, speech deficit - Skin Skin exam: Present: dry, intact Internal Medicine: Result - Labs CBC & Chem 7: 03/13/17 13:51 03/15/17 04:00 Labs: BMP 03/15/17 04:00 Sodium 141 Potassium 3.1 L Chloride 111 H Carbon Dioxide 21 L BUN 13 Creatinine 0.65 Glucose 91 Calcium 7.8 L - ABG Interpretation ABG results: PT/INR, D-dimer D-Dimer 1631 ng/mLFEU (0-500) H 03/13/17 09:22 Consult Discharge Plan - Plan Referrals: Wu Alexandra MD [Primary Care Provider] -
--- NOTE | 2017-03-15 17:32 | Cardiology Progress Note ---
Date of Encounter: 03/15/17 Time of Encounter: 17:00 Assessment and Plan Discussion w patient/family: The assessment and plan as outlined above was discussed with the patient and/or family members who expressed understanding and agreement. All questions were answered. Thank you for involving us in the care of your patient. Please call with any questions. IMP: 1. A fib with RVR, rate better controlled back on meds, went very fast with skipped doses of metoprolol, better controlled today 2. Acute on chronic systolic heart failure, responding to IV lasix, may need to add daily lasix 40 mg orally daily when dc IV tx. Subjective Principal diagnosis: afib with RVR, UTI Interval history: Pt more short of breath this am, was having difficulty lying flat due to shortness of breath, did walk in hallway on room air with rapid desaturation, back on O2. She will need home O2, and most likely continuous use for now, Objective Vital Signs, Last 4 Hours Temp Pulse Resp BP Pulse Ox 03/15/17 14:54 97.7 F 104 16 125/89 93 General: Conversant, No Apparent Distress HEENT: Atraumatic, Normocephaly, Mucus Membranes Moist Neck: No JVD, Normal carotid pulses Cardiac: Other (irregularly irregualer, rate controlled 80 to 100 per auscultation) Lungs: Other (bilateral basilar rales, poor inspiratory effort. ) Neuro: Alert and responsive, Other (pleasently controlled) Abdomen: Soft, Non-Tender Skin: No rashes noted on visualized skin Musculoskeletal: No Chest Wall Tenderness Extremities: No Clubbing, No Cyanosis Results 03/13/17 13:51 03/15/17 04:00 Lab Results 03/15/17 04:00 Sodium 141 Potassium 3.1 L Chloride 111 H Carbon Dioxide 21 L BUN 13 Creatinine 0.65 Glucose 91 Calcium 7.8 L Magnesium 1.6 Consult Discharge Plan - Plan Referrals: Wu Alexandra MD [Primary Care Provider] -
[2017-03-15] MEDS: cefTRIAXone 1,000 MG in Water for inj. (sterile) 10 ML IVPB SCH (20:49)
[2017-03-16] MEDS: *HR* Enoxaparin 40 MG/0.4 ML SYRINGE SQ SCH (04:51)
[2017-03-16] MEDS: Spironolactone 25 MG TABLET PO SCH (08:49)
[2017-03-16] MEDS: Furosemide 40 MG/4 ML VIAL IVP SCH (08:49)
[2017-03-16] MEDS: Diltiazem SR (12hr) 90 MG CAPSULE PO SCH (08:50)
[2017-03-16] MEDS: Cyanocobalamin (B-12) 1,000 MCG TABLET PO SCH (09:01)
[2017-03-16] MEDS: BuPROPion XL (24 HR) 150 MG TABLET PO SCH (09:01)
[2017-03-16] MEDS: Aspirin 81 MG TAB.CHEW PO SCH (09:01)
[2017-03-16] MEDS: Cholecalciferol (D-3) 1,000 UNIT TABLET PO SCH (09:01)
[2017-03-16] MEDS: Folic Acid 1 MG TABLET PO SCH (09:02)
[2017-03-16] MEDS: FLUoxetine HCl 10 MG CAPSULE PO SCH (09:05)
[2017-03-16 09:55] LABS: Hematocrit 39.4 % (35.3-44.9); Hemoglobin 12.7 g/dL (11.5-15.4); Mean Corpuscular HGB Conc 32.2 g/dL (31.6-35.5); Mean Corpuscular Volume 83.7 fL (83.0-100.0); Mean Platelet Volume 11.2 fL (9.4-12.4); Platelet Count 244 K/mcL (140-400); Red Blood Count 4.71 M/mcL (3.82-4.97); Red Cell Distribution Width 15.7 % (11.5-14.5)
[2017-03-16 10:33] LABS: BUN/Creatinine Ratio 19 (6-26); Blood Urea Nitrogen 15 mg/dL (8-23); Calcium 8.9 mg/dL (8.6-10.3); Carbon Dioxide 21 mEq/L (23-29); Chloride 109 mEq/L (98-107); Glucose 165 mg/dL (70-105); Osmolality,Calculated 295 (280-300); Sodium 140 mEq/L (136-145); eGFR For African Americans > 60 (> 60); eGFR For Non-African Americans > 60 (> 60)
[2017-03-16 11:55] VITALS: BP 137/94
--- NOTE | 2017-03-16 12:23 | Cardiology Progress Note ---
Date of Encounter: 03/16/17 Time of Encounter: 10:30 Assessment and Plan (1) Atrial fibrillation with controlled ventricular rate Current Visit: Yes Status: Chronic Atrial fib with controlled ventricular response, better controlled on current meds both with ambulation and at rest. Pt is at low risk for hospital discharge on current medications from cardiology perspective. (2) Acute systolic (congestive) heart failure Current Visit: Yes Status: Acute Shortness of breath and bibasilar rales have resolved with IV diuresis, would discharge to home on spirolactone 25 mg q d only, monitor in clinic in one week for evaluation of electrolytes and renal function. Discussion w patient/family: The assessment and plan as outlined above was discussed with the patient and/or family members who expressed understanding and agreement. All questions were answered. Thank you for involving us in the care of your patient. Please call with any questions. Subjective Principal diagnosis: afib with RVR, UTI Interval history: Pt is much less short of breath, up with daughters in room, shortness of breath with ambulation has resolved, was able to lie flat this am, is walking without O2, no complaints of breathing hard, reports is much improved. Pt, and family very anxious for discharge if medically stable. Objective Vital Signs, Last 4 Hours Temp Pulse Resp BP Pulse Ox 03/16/17 11:53 97.4 F L 88 16 137/94 96 General: Conversant HEENT: Atraumatic, Normocephaly Neck: No JVD Cardiac: Normal S1 and S2, Other (A fib with controlled ventricular response to ausultation. ) Lungs: Normal Breath Sounds, No Wheeze, Rales, Rhonchi Neuro: Alert and responsive Abdomen: Soft Skin: No rashes noted on visualized skin Musculoskeletal: No Chest Wall Tenderness Extremities: No Clubbing Results 03/16/17 09:40 03/16/17 09:40 Lab Results 03/16/17 03/16/17 09:40 09:40 WBC 11.0 Hgb 12.7 Hct 39.4 Plt Count 244 Sodium 140 Potassium 4.0 Chloride 109 H Carbon Dioxide 21 L BUN 15 Creatinine 0.79 Glucose 165 H Calcium 8.9 Consult Discharge Plan - Plan Referrals: Nasrin,Wu Vanessa MD [Primary Care Provider] -
--- NOTE | 2017-03-16 13:37 | Discharge Summary ---
Date of Encounter: 03/16/17 Time of Encounter: 09:00 - Discharge Diagnosis (1) Acute respiratory failure with hypoxia Priority: Primary Status: Acute Comments: Does not wear oxygen at home. Required supplemental O2 inpatient. Oxygen saturation dropped to 77% on room air with ambulation. Chest CTA negative for pulmonry embolism. Qualifies for home oxygen. Multifactorial with new CHF and A. fib with RVR. Discharge home with oxygen (2) Acute systolic (congestive) heart failure Priority: Primary Status: Acute Comments: new dx. 02/2017 TTE with EF 30%, indeterminate diastolic dysfunction (EF previously 65% in 2016). BNP 955, CXR concerning for mild pulmonary edema. Appeared mildly dyspenic, no peripheral edema. She was diuresed with IV Lasix with improvement in dyspnea. Discharge home on spironolactone, AKIKO, BB. Will need to follow-up with Cardiology in one week. Cardiology followed while inpatient. (3) Atrial fibrillation with RVR Priority: Primary Status: Acute Comments: per hx. HR initially controlled however found to be in a-fib with RVR with HRs in 130s. Required Cardizem gtt for rate controlled. Evaluated by Cardiology who noted no anticoagulation due to high fall risk. HR remained variable and elevated at times with activity but overall acceptable. Cont home BB. Diltiazem added per cardiology. Follow-up with cardiology in 1 week (4) Aortic stenosis Priority: Primary Status: Acute Comments: TTE shows moderate aortic stenosis and moderate tricuspid regurgitation. Possibly contributing to weakness. Cardiology followed Qualifiers: Cardiac valve disease etiology: etiology unspecified Qualified Code(s): I35.0 - Nonrheumatic aortic (valve) stenosis (5) UTI (urinary tract infection) Priority: Primary Status: Resolved Comments: UA indicative of UTI. Urine cx with pansensitive Escherichia coli. Completed 5 day course of IV Rocephin Qualifiers: Urinary tract infection type: acute cystitis Hematuria presence: with hematuria Qualified Code(s): N30.01 - Acute cystitis with hematuria (6) Hypertension Priority: Primary Status: Chronic Comments: per hx. BP apparently uncontrolled at home with SBPs in 180s. BP variable while inpatient. Cont home BB, CCB added for a-fib. Qualifiers: Hypertension type: essential hypertension Qualified Code(s): I10 - Essential (primary) hypertension (7) Lewy body dementia with behavioral disturbance Priority: Secondary Status: Chronic Comments: per hx. Mentation at baseline. - Discharge Medications Prescriptions: Diltiazem SR (12hr) [Cardizem SR] 180 mg PO BID #60 cap.er.12h Lisinopril [Zestril] 2.5 mg PO DAILY #30 tablet Spironolactone [Aldactone] 25 mg PO DAILY #30 tablet Home Medications: Aspirin 81 mg PO DAILY 01/02/16 [History] Atorvastatin [Lipitor] 40 mg PO HS 01/02/16 [History] Bupropion HCl [Wellbutrin Xl] 300 mg PO QAM 01/02/16 [History] Calcium Carbonate/Vitamin D3 [Calcium 500-Vit D3 200 Caplet] 1 each PO DAILY [History] Cyanocobalamin (Vitamin B-12) [Vitamin B12] 1,000 mcg PO DAILY 01/02/16 [History ] Docusate [Colace] 100 mg PO DAILY PRN 01/02/16 [History] FLUoxetine HCl [Prozac] 10 mg PO QAM 01/02/16 [History] Folic Acid 0.4 mg PO DAILY 01/02/16 [History] Metoprolol [Lopressor] 75 mg PO BID 01/02/16 [History] Quetiapine Fumarate [Seroquel] 50 mg PO HS 01/02/16 [History] Vit C/E/Zn/Coppr/Lutein/Zeaxan [Preservision Areds 2 Softgel] 1 cap PO BID 03/11 [History] Galantamine [Razadyne] 8 mg PO BID 03/13/17 [History] Diltiazem SR (12hr) [Cardizem SR] 180 mg PO BID #60 cap.er.12h 03/16/17 [Rx] Lisinopril [Zestril] 2.5 mg PO DAILY #30 tablet 03/16/17 [Rx] Spironolactone [Aldactone] 25 mg PO DAILY #30 tablet 03/16/17 [Rx] Allergies/Adverse Reactions: 3 Allergy/AdvReac Type Severity Reaction Status Date / Time No Known Allergies Allergy Verified 03/11/17 07:27 Date of admission: 03/14/17 14:39 Primary care physician: Wu Alexandra MD Consults: 03/14/17 15:27 Consult to Invasive Line Access Team [CONS] Routine Reason for Consult: Limited access Line Type: EPIV Discharging clinician: Hortencia Davis Anticipated date of discharge: 03/16/17 - Patient Status Disposition: Home, Self-Care Condition: Good Functional capacity at discharge: uses cane/walker Overall status at discharge: patient is progressing back to baseline - Discharge Instructions Instructions: Heart Failure (DC), Spironolactone (By mouth), Lisinopril (By mouth), Atrial Fibrillation (DC), Diltiazem (By mouth), Metoprolol (By mouth) Follow Up With: Wu Alexandra MD [Primary Care Provider] - Ethan Grant DO [Partnered Physician] - (Please call for an appt within one week) Forms: ED Satisfaction Letter - Diet and Activity Activity: increase activity as tolerated Diet: low fat, low cholesterol, low salt diet Interval History: Seen and examined at bedside. Acute changes in exam to report. Senna bedside eating breakfast. Most of information obtained from as patient has dementia. The voices frustration was still been in the hospital and would like to discharge home as soon as possible. He is frustrated with the power collide not drawing blood and initially refused lab draw. Explained importance of monitoring patient's renal function with spironolactone and AKIKO added yesterday. He finally was agreeable. Says he feels patient is improved and stable to return home. He will provide 24-hour care at discharge. Patient says she feels okay, last inappropriately at times. Follows commands. She has no complaints Hospital course: See assessment and plan for hospital course - Time Spent with Patient Total time spent providing and/or coordinating discharge services: Greater than 30 minutes (48 minutes spent on discharge) - Constitutional Vitals: Temp Pulse Resp BP Pulse Ox 97.4 F L 88 16 137/94 96 03/16/17 11:53 03/16/17 11:53 03/16/17 11:53 03/16/17 11:53 03/16/17 11:53 General appearance: Present: A&O X 2, pleasant, no acute distress - Head Head exam: Present: atraumatic, normocephalic - Eye Eye exam: Present: PERRL, conjuntiva pink, sclera anicteric Pupils: Present: PERRL - Neck Neck exam general surgery: Present: supple, trachea midline. Absent: lymphadenopathy - Respiratory Respiratory exam: Present: rales. Absent: accessory muscle use, rhonchi, wheezes - Cardiovascular Cardiovascular exam: Present: RRR, +S1, +S2. Absent: diastolic murmur, gallop, rubs, systolic murmur - GI/Abdominal GI/Abdominal exam: Present: normal bowel sounds, soft, no peritoneal signs. Absent: distended, tenderness - Extremities Exam Extremities exam: Present: warm, radial pulses palpable and symmetrical. Absent : calf tenderness, cyanotic, pedal edema - Neurological Exam Neurological exam: Present: CN II-XII intact, oriented X3, no focal deficits. Absent: pronater drift, facial droop, speech deficit - Skin Skin exam: Present: dry, intact
[2017-03-16] MEDS: Acetaminophen 325 MG TABLET PO PRN (14:45)
[2017-03-16] MEDS: cefTRIAXone 1,000 MG in Water for inj. (sterile) 10 ML IVPB SCH (15:38)
== END 2017-03-16 15:50 | disposition home or self-care (01) | DRG 689 ==
LOC: EMEROO 07:14 → 3BNU 07:14
PROVIDERS: ADMIT Registered Nurse; ATTEND Registered Nurse

== ENCOUNTER 2017-04-28 08:09 | Inpatient (IN) ==
[~2017-04-28 08:09] MED LIST: Aminoglycoside Consult 1 EACH MC ONE
[2017-04-28] MEDS ORDERED: Aspirin 81 MG TAB.CHEW PO ONE (08:30)
--- NOTE | 2017-04-28 08:30 | Emergency Department Note ---
Disposition Clinical Impression: Pneumonia Qualifiers: Pneumonia type: due to unspecified organism Laterality: unspecified laterality Lung location: unspecified part of lung Qualified Code(s): J18.9 - Pneumonia, unspecified organism Congestive heart failure Qualifiers: Heart failure type: unspecified Heart failure chronicity: unspecified Qualified Code(s): I50.9 - Heart failure, unspecified Disposition: Admitted As Inpatient Condition: Fair Time of Disposition: 11:06 General Adult HPI - General Chief complaint: ED Chest Pain Stated complaint: chest pain Time Seen by Provider: 04/28/17 08:12 Source: patient Mode of arrival: EMS Limitations: no limitations Nursing Notes Reviewed: Yes Vital Signs Reviewed: Yes - History of Present Illness HPI Narrative: 81-year-old female history of dementia, ACS, status post pacemaker since for evaluation of chest pain. Patient's history provided via the at bedside. States that the patient has been having chest pain started this morning now resolved. Noted to be across her chest. Nonexertional. Patient also been feeling short of breath over the past couple days. states the patient was recently seen at [facility] and was placed on water pill for a few days. Patient denies any fevers but has had a nonreactive cough. Patient uses oxygen at home as needed. - Related Data Home Medications Medication Instructions Recorded Confirmed Aspirin 81 mg PO DAILY 01/02/16 04/28/17 Atorvastatin [Lipitor] 40 mg PO HS 01/02/16 04/28/17 Bupropion HCl [Wellbutrin Xl] 300 mg PO QAM 01/02/16 04/28/17 Calcium Carbonate/Vitamin D3 1 each PO DAILY 01/02/16 04/28/17 [Calcium 500-Vit D3 200 Caplet] Cyanocobalamin (Vitamin B-12) 1,000 mcg PO DAILY 01/02/16 04/28/17 [Vitamin B12] Docusate [Colace] 100 mg PO DAILY PRN 01/02/16 04/28/17 Folic Acid 0.8 mg PO DAILY 01/02/16 04/28/17 Metoprolol [Lopressor] 75 mg PO BID 01/02/16 04/28/17 Vit C/E/Zn/Coppr/Lutein/Zeaxan 1 cap PO BID 03/11/17 04/28/17 [Preservision Areds 2 Softgel] Galantamine [Razadyne] 8 mg PO BID 03/13/17 04/28/17 Diltiazem CD (24hr) [Cardizem CD] 300 mg PO DAILY 04/28/17 04/28/17 Furosemide [Lasix] 20 mg PO DAILY 04/28/17 04/28/17 Latanoprost [Xalatan] 1 drop BOTH EYES HS 04/28/17 04/28/17 Lisinopril [Zestril] 5 mg PO DAILY 04/28/17 04/28/17 Meclizine [Antivert] 25 mg PO PRN PRN 04/28/17 04/28/17 Melatonin 10 mg PO HS 04/28/17 04/28/17 Mirtazapine [Remeron] 15 mg PO HS 04/28/17 04/28/17 Quetiapine Fumarate [SEROquel] 25 mg PO HS 04/28/17 04/28/17 Allergies Allergy/AdvReac Type Severity Reaction Status Date / Time No Known Allergies Allergy Verified 03/11/17 07:27 All systems ED: reviewed and negative except as stated. Constitutional: Denies: fever Cardiovascular: Reports: chest pain Respiratory: Reports: cough, dyspnea Gastrointestinal: Reports: nausea, vomiting. Denies: abdominal pain Past Medical History - Past Medical History Source: patient Medical history: Reports: atrial fibrillation, dementia, GERD, hyperlipidemia, hypertension, valvular heart disease Surgical history: Reports: cataract, hip replacement, pacemaker/AICD Psychiatric history: Reports: no psych history GAS ATTENDANT history: Reports: no GAS ATTENDANT history - Social History Smoking Status: Never smoker Smokeless Tobacco Status: No Alcohol use: Reports: none Drug use: Reports: none Physical Exam - General Limitations: no limitations, age General appearance: alert, in no apparent distress - Head Head exam: atraumatic, normocephalic, normal inspection - Eye Eye exam: Present: normal appearance, PERRL, EOMI - ENT ENT exam: normal exam, normal oropharynx - Neck Neck exam: Present: normal inspection, full ROM - Chest Chest inspection: Present: normal inspection, symmetric chest wall rise - Respiratory Respiratory exam: Present: other (Bilateral rails). Absent: respiratory distress - Cardiovascular Cardiovascular exam: Present: tachycardia, irregular rhythm - Abdominal Exam Abdominal exam: Present: soft, Non-Tender - Extremities Exam Extremities exam: Present: normal inspection. Absent: pedal edema - Back Exam Back exam: Present: normal inspection - Neurological Exam Neurological exam: Present: alert - Skin Skin exam: Present: warm, dry, intact, normal color Course Course Narrative: Patient seen and examined. Patient appears to be in no acute distress. Patient does have an irregular regular rhythm. Patient's blood pressures preserved. Patient with basic labs, EKG chest x-ray. Disposition likely admission. Patient denies any chest pain at this time. - Reevaluation(s) Reevaluation #1: Repeat EKG shows A. fib with a rapid response of 119 left axis deviation and left bundle with PVCs. Time: 08:57 Reevaluation #2: Patient seen and examined. Patient appears in no acute distress. Patient does have an oxygen requirement. Patient's agreeable to admission. Time: 11:06 Vital Signs Temperature 97.3 F L 04/28/17 08:14 Pulse Rate 103 04/28/17 08:14 Respiratory Rate 14 04/28/17 08:14 Blood Pressure 153/117 04/28/17 08:14 O2 Sat by Pulse Oximetry 98 04/28/17 08:14 Temperature 98.1 F 04/28/17 15:18 Pulse Rate 104 04/28/17 15:18 Respiratory Rate 20 04/28/17 15:18 Blood Pressure 142/108 04/28/17 17:01 O2 Sat by Pulse Oximetry 95 04/28/17 15:18 Oxygen Delivery Oxygen Delivery Nasal Cannula Medical Decision Making - [facility] Narrative Medical decision making narrative: Patient presents with concerns of chest pain short of breath. Also been concerns for pneumonia in the setting of congestive heart failure. Patient does meet SIRS criteria with tachycardia as well as leukocytosis. Patient does have an increased size requirement with complaints of nonproductive cough. Patient's been denying chest pain in the ER. Patient troponins negative. Patient's chest x-ray shows pulmonary edema versus underlying pneumonia. Given the patient's clinical exam the patient likely has pneumonia. Patient's states she was recently admitted to [facility] and was given a water pill likely in the setting of congestive heart failure. Patient was not overly aggressively diuresed in the emergency department setting in that setting of possible pneumonia. Patient's heart rate and blood pressure have been stable. Patient's pacemaker interrogated. Patient was given an aspirin. Patient's urinalysis shows no signs of infection. The etiology the patient's white count is likely secondary to pneumonia. - Lab Data Lab results reviewed: Yes I reviewed the patient's lab results. Result diagrams: 04/28/17 08:29 04/28/17 08:29 Lab Results 04/28/17 04/28/17 04/28/17 Range/Units 08:29 08:29 08:29 WBC 20.5 H (4.3-11.1) K/mcL RBC 5.29 H (3.82-4.97) M/mcL Hgb 14.1 (11.5-15.4) g/dL Hct 46.1 H (35.3-44.9) % MCV 87.1 (83.0-100.0) fL MCH 26.7 L (28.0-33.3) pg MCHC 30.6 L (31.6-35.5) g/dL RDW 16.5 H (11.5-14.5) % Plt Count 331 (140-400) K/mcL MPV 11.6 (9.4-12.4) fL Immature Gran % 0.7 (0-4) % Seg Neutrophils % 82.2 % Lymphocytes % 10.9 % Monocytes % 6.0 % Eosinophils % 0.1 % Basophils % 0.1 % Neutrophils # 16.9 H (1.6-8.9) K/mcL Lymphocytes # 2.2 (0.6-4.6) K/mcL Monocytes # 1.2 (0.0-1.3) K/mcL Eosinophils # 0.0 (0.0-0.6) K/mcL Basophils # 0.0 (0.0-0.2) K/mcL Platelet Estimate Normal (Normal) PT 10.9 (9.4-12.1) Seconds INR 1.0 APTT 19.0 L (26.0-36.0) Seconds Sodium (136-145) mEq/L Potassium (3.5-5.1) mEq/L Chloride (98-107) mEq/L Carbon Dioxide (23-29) mEq/L BUN (8-23) mg/dL Creatinine (0.60-1.20) mg/dL Est GFR ( Amer) (> 60) Est GFR (Non-Af Amer) (> 60) BUN/Creatinine Ratio (6-26) Glucose (70-105) mg/dL Calculated Osmolality (280-300) Lactic Acid (0.5-2.2) mmol/L Calcium (8.6-10.3) mg/dL Magnesium (1.6-2.6) mg/dL Troponin I (< 0.04) ng/mL B-Natriuretic Peptide 1798 H (Less than 100) pg/mL Urine Color (Yellow) Urine Clarity (Clear) Urine pH (5.0-8.0) pH Units Ur Specific [place] (1.010-1.025) Urine Protein (Neg-Trace) mg/dL Urine Glucose (UA) (Normal) mg/dL Urine Ketones (Negative) mg/dL Urine Blood (Negative) Urine Nitrite (Negative) Urine Bilirubin (Negative) Urine Urobilinogen (Normal) mg/dL Ur Leukocyte Esterase (Negative) Urine Microscopic RBC (0-3) per hpf Urine Microscopic WBC (0-3) per hpf Ur Squamous Epith Cells (None-Few) per lpf Urine Bacteria (None-Few) per hpf Hyaline Casts (None-Few) per lpf 04/28/17 04/28/17 04/28/17 Range/Units 08:29 09:44 10:32 WBC (4.3-11.1) K/mcL RBC (3.82-4.97) M/mcL Hgb (11.5-15.4) g/dL Hct (35.3-44.9) % MCV (83.0-100.0) fL MCH (28.0-33.3) pg MCHC (31.6-35.5) g/dL RDW (11.5-14.5) % Plt Count (140-400) K/mcL MPV (9.4-12.4) fL Immature Gran % (0-4) % Seg Neutrophils % % Lymphocytes % % Monocytes % % Eosinophils % % Basophils % % Neutrophils # (1.6-8.9) K/mcL Lymphocytes # (0.6-4.6) K/mcL Monocytes # (0.0-1.3) K/mcL Eosinophils # (0.0-0.6) K/mcL Basophils # (0.0-0.2) K/mcL Platelet Estimate (Normal) PT (9.4-12.1) Seconds INR APTT (26.0-36.0) Seconds Sodium 139 (136-145) mEq/L Potassium 4.5 (3.5-5.1) mEq/L Chloride 108 H (98-107) mEq/L Carbon Dioxide 20 L (23-29) mEq/L BUN 24 H (8-23) mg/dL Creatinine 0.84 (0.60-1.20) mg/dL Est GFR ( Amer) > 60 (> 60) Est GFR (Non-Af Amer) > 60 (> 60) BUN/Creatinine Ratio 29 H (6-26) Glucose 92 (70-105) mg/dL Calculated Osmolality 292 (280-300) Lactic Acid 1.6 (0.5-2.2) mmol/L Calcium 9.4 (8.6-10.3) mg/dL Magnesium 2.2 (1.6-2.6) mg/dL Troponin I 0.03 (< 0.04) ng/mL B-Natriuretic Peptide (Less than 100) pg/mL Urine Color Yellow (Yellow) Urine Clarity Clear (Clear) Urine pH 5.5 (5.0-8.0) pH Units Ur Specific [place] 1.029 H (1.010-1.025) Urine Protein Trace (Neg-Trace) mg/dL Urine Glucose (UA) Normal (Normal) mg/dL Urine Ketones Negative (Negative) mg/dL Urine Blood Negative (Negative) Urine Nitrite Negative (Negative) Urine Bilirubin Negative (Negative) Urine Urobilinogen Normal (Normal) mg/dL Ur Leukocyte Esterase Negative (Negative) Urine Microscopic RBC 0-3 (0-3) per hpf Urine Microscopic WBC 0-3 (0-3) per hpf Ur Squamous Epith Cells Many H (None-Few) per lpf Urine Bacteria None Seen (None-Few) per hpf Hyaline Casts Few (None-Few) per lpf - Radiology Data Radiology results reviewed: Yes I reviewed the patient's radiology results. Chest X-Ray 04/28/17 08:17 IMPRESSION: Pulmonary vascular congestion and small bilateral pleural effusions with possible underlying atelectasis or infiltrates. D/ / Carolyn Wallace MD / Carolyn Wallace MD Interpreting Provider: Carolyn Wallace MD - EKG Data EKG #1 EKG attestation: Yes I reviewed and interpreted this EKG. EKG results narrative: Irregular irregular rhythm with a rate of 98 with intermittent paced beats and 3 runs of PVC. Left axis deviation. Rate: tachycardia Rhythm: A.Fib Marcie.Ksenia.Jason. - Sita.Edgar Situation: Demographics Background: Presenting Complaint Assessment: Vital Signs, Course and respsone to treatment, Patient/Family Expectation Recommendation: Barrier(s) to disposition, Recommendation based on pending studies, treatments, or consults S.B.ATushar Report Given to: Dr. Dimitry Reeder Repor Time: 11:03 Attestation Statement - Attestation Attestation: I examined this patient and my medical decision-making was reviewed with the Resident Physician. I agree with the documented findings, disposition and treatment plan as described except to the extent set forth below. Patient to the ED with a chief complaint of shortness of breath. She also had some chest pain this morning that is resolved. Chest pain increasing over the past few days. Patient is in no distress on examination. Lungs diminished but clear. Plan. The patient's workup shows a pneumonia. Cardiac workup has been unremarkable. EKG does not show any obvious ST elevations or depressions. Patient is started on antibiotics and admitted to the hospital.
[2017-04-28 08:54] LABS: Basophils % 0.1 %; Eosinophils % 0.1 %; Hematocrit 46.1 % (35.3-44.9); Hemoglobin 14.1 g/dL (11.5-15.4); Immature Granulocytes % 0.7 % (0-4); Lymphocytes # 2.2 K/mcL (0.6-4.6); Lymphocytes % 10.9 %; Mean Corpuscular HGB Conc 30.6 g/dL (31.6-35.5); Mean Corpuscular Hemoglobin 26.7 pg (28.0-33.3); Mean Corpuscular Volume 87.1 fL (83.0-100.0); Mean Platelet Volume 11.6 fL (9.4-12.4); Monocytes # 1.2 K/mcL (0.0-1.3); Neutrophils # 16.9 K/mcL (1.6-8.9); Platelet Count 331 K/mcL (140-400); Red Blood Count 5.29 M/mcL (3.82-4.97); Red Cell Distribution Width 16.5 % (11.5-14.5); Segmented Neutrophils % 82.2 %
[2017-04-28] MEDS ORDERED: *HR* Metoprolol 5 MG/5 ML VIAL IVP ONE (08:56)
[2017-04-28 09:02] LABS: Prothrombin Time 10.9 Seconds (9.4-12.1)
[2017-04-28 09:04] LABS: Troponin I 0.03 ng/mL (< 0.04)
[2017-04-28 09:06] LABS: BUN/Creatinine Ratio 29 (6-26); Blood Urea Nitrogen 24 mg/dL (8-23); Calcium 9.4 mg/dL (8.6-10.3); Carbon Dioxide 20 mEq/L (23-29); Chloride 108 mEq/L (98-107); Glucose 92 mg/dL (70-105); Magnesium 2.2 mg/dL (1.6-2.6); Osmolality,Calculated 292 (280-300); Potassium 4.5 mEq/L (3.5-5.1); Sodium 139 mEq/L (136-145); eGFR For African Americans > 60 (> 60); eGFR For Non-African Americans > 60 (> 60)
[2017-04-28 09:27] LABS: Platelet Estimate Normal (Normal)
[2017-04-28] MEDS ORDERED: Piperacillin/Tazobactam 3.375 GM in 0.9 % Sodium Chloride Mini Bag 100 ML IVPB ONE (09:31)
[2017-04-28 10:50] LABS: Bilirubin,Urine Negative (Negative); Blood,Urine Negative (Negative); Clarity,Urine Clear (Clear); Color,Urine Yellow (Yellow); Glucose,Urine (UA) Normal (Normal); Ketones,Urine Negative (Negative); Leukocyte Esterase,Urine Negative (Negative); Nitrite,Urine Negative (Negative); PH,Urine 5.5 pH Units (5.0-8.0); Protein,Urine Trace mg/dL (Neg-Trace); Specific Gravity,Urine 1.029 (1.010-1.025); Urobilinogen,Urine Normal (Normal)
[2017-04-28 10:55] LABS: Bacteria,Urine None Seen per hpf (None-Few); Hyaline Casts,Urine Few per lpf (None-Few); RBC,Urine 0-3 per hpf (0-3); Squamous Epithelial Cell,Urine Many per lpf (None-Few); WBC,Urine 0-3 per hpf (0-3)
[2017-04-28] MEDS ORDERED: Naloxone 0.4 MG/ML INJ IVP PRN (13:22)
--- NOTE | 2017-04-28 13:49 | Internal Med History&Physical ---
<LailaBoom - Last Filed: 04/28/17 19:47> Date of Encounter: 04/28/17 Time of Encounter: 12:30 Assessment and Plan (1) Pneumonia Current visit: Yes Status: Acute CXR shows pulmonary edema vs. PNA. WBC elevated ar 20.5. No fever. Blood cultures pending. - Patient refusing IV antibiotics. Will put on levaquin and zyvox PO. Qualifiers: Pneumonia type: due to unspecified organism Laterality: unspecified laterality Lung location: unspecified part of lung Qualified Code(s): J18.9 - Pneumonia, unspecified organism (2) Chest pain Current visit: Yes Status: Acute EKG showed a-fib. EKG showed no acute changes when compared to last EKG. Troponin was negative. Patient has atypical chest pain symptoms. Does not seem as anginal related. Qualifiers: Qualified Code(s): R07.9 - Chest pain, unspecified (3) Atrial fibrillation with RVR Current visit: No Status: Acute EKG unchanged from previous one. - Will resume home medications. (4) History of CHF (congestive heart failure) Current visit: Yes Status: Acute BNP elevated at 1798. Pulmonary edema likely secondary to PNA. Last EF in [facility] was 30%. Given history of CHF, recommend holding IV fluids and putting patient on fluids restrictions. (5) Sepsis Current visit: Yes Status: Acute Patient meets sepsis criteria with elevated WBC of 20.5 and tachycardia of 117. - Blood cultures pending. - Likely secondary fo PNA. Patient on zyvox and levaquin Qualifiers: Qualified Code(s): A41.9 - Sepsis, unspecified organism (6) DVT prophylaxis Current visit: Yes Status: Acute - Lovenox 40 mg SQ qd. Internal Medicine - H&P: HPI Chief complaint: SOB, chest pain Admitted From: Emergency Dept History of present illness: Ms. Osorio is a 81 year old female with a PMH of A-fib, dementia, GERD, HLD, HTN, and valvular heart disease with a PSH of a pacemaker/AICD placement in 2009 that presents for SOB and chest pain. Patient says her she became short of breath this morning around 2:00 AM while sleeping. She says that about an hour later she started experiencing pressure-like chest pain across both sides of her chest. She rates the pain as a 5/10 in severity. It lasted for 5 hours until she was brought to the ED. She denies having this type of pain before. Pain came about while she was resting. She admits to a dry cough for the past 2- 3 weeks. She denies any fever, nausea, vomiting, or weight changes. She admits to lower extremity edema for the past 2 months. She currently takes 20 mg lasix qd at home. Patient was last hospitalized in 2017 for acute respiratory failure and HF. Past Med Surg Social Fam HX - Past Medical History Medical history: atrial fibrillation, dementia, GERD, hyperlipidemia, hypertension, valvular heart disease Psychiatric history: no psych history - Past Surgical History Surgical History: cataract, hip replacement, pacemaker/AICD - Social History Smoking Status: Never smoker Smokeless Tobacco Status: No Alcohol use: none Drug use: none Internal Medicine - H&P: Meds Aspirin 81 mg PO DAILY 01/02/16 [History] Atorvastatin [Lipitor] 40 mg PO HS 01/02/16 [History] Bupropion HCl [Wellbutrin Xl] 300 mg PO QAM 01/02/16 [History] Calcium Carbonate/Vitamin D3 [Calcium 500-Vit D3 200 Caplet] 1 each PO DAILY [History] Cyanocobalamin (Vitamin B-12) [Vitamin B12] 1,000 mcg PO DAILY 01/02/16 [History ] Docusate [Colace] 100 mg PO DAILY PRN 01/02/16 [History] Folic Acid 0.8 mg PO DAILY 01/02/16 [History] Metoprolol [Lopressor] 75 mg PO BID 01/02/16 [History] Vit C/E/Zn/Coppr/Lutein/Zeaxan [Preservision Areds 2 Softgel] 1 cap PO BID 03/11 [History] Galantamine [Razadyne] 8 mg PO BID 03/13/17 [History] Diltiazem CD (24hr) [Cardizem CD] 300 mg PO DAILY 04/28/17 [History] Furosemide [Lasix] 20 mg PO DAILY 04/28/17 [History] Latanoprost [Xalatan] 1 drop BOTH EYES HS 04/28/17 [History] Lisinopril [Zestril] 5 mg PO DAILY 04/28/17 [History] Meclizine [Antivert] 25 mg PO PRN PRN 04/28/17 [History] Melatonin 10 mg PO HS 04/28/17 [History] Mirtazapine [Remeron] 15 mg PO HS 04/28/17 [History] Quetiapine Fumarate [SEROquel] 25 mg PO HS 04/28/17 [History] 3 Allergy/AdvReac Type Severity Reaction Status Date / Time No Known Allergies Allergy Verified 03/11/17 07:27 All Systems PM: A 10-system review of systems was performed and is negative for pertinent findings except as documented above in the HPI. - Constitutional Constitutional: no chills, no fever(s), no night sweats - EENT Eyes: no change in vision, no discharge, no pain, no photophobia Nose, mouth and throat: no dysphagia, no nasal discharge, no neck pain, no sore throat - Cardiovascular Cardiovascular ROS IM: chest pain, dyspnea, edema, irregular heart rhythm, orthopnea - Respiratory Respiratory: cough, no wheezing, no pain with cough - Gastrointestinal Gastrointestinal: abdominal pain, constipation, diarrhea, no hematemesis, no hematochezia, no melena, no nausea, no vomiting - Musculoskeletal Additional comments: B/L lower extremity +1 pedal edema. Pedal pulses intact and symmetrical b/l. - Constitutional Vitals: Temp Pulse Resp BP Pulse Ox 97.7 F 108 20 132/105 95 04/28/17 12:26 04/28/17 12:26 04/28/17 12:26 04/28/17 12:26 04/28/17 12:28 General appearance: Present: no acute distress, answers questions appropriately - Eye Eye exam: Present: PERRL, conjuntiva pink, sclera anicteric Pupils: Present: PERRL - ENT ENT exam: Present: mucous membranes moist, normal exam, normal oropharynx - Respiratory Respiratory exam: Present: CTAB. Absent: accessory muscle use, rales, rhonchi, wheezes - Cardiovascular Cardiovascular exam: Present: irregular rhythm, systolic murmur, tachycardia - GI/Abdominal GI/Abdominal exam: Present: normal bowel sounds, soft. Absent: distended, guarding, rebound, tenderness - Extremities Exam Extremities exam: Present: full ROM, normal capillary refill, pedal edema (+1 pitting edema b/l. ), radial pulses palpable and symmetrical. Absent: cyanotic Internal Med - H&P Results - Labs CBC & Chem 7: 04/28/17 08:29 04/28/17 08:29 <Brian Moraes - Last Filed: 04/29/17 12:26> Date of Encounter: 04/29/17 Internal Medicine - H&P: HPI History of present illness: Ms. Osorio is a 81 year old female All Systems PM: A 10-system review of systems was performed and is negative for pertinent findings except as documented above in the HPI. - Constitutional Vitals: Temp Pulse Resp BP Pulse Ox 97.4 F L 98 18 127/101 97 04/29/17 10:48 04/29/17 10:48 04/29/17 10:48 04/29/17 10:48 04/29/17 10:48 Internal Med - H&P Results - Labs CBC & Chem 7: 04/29/17 05:08 04/29/17 05:08 Labs: Short CBC 04/29/17 Range/Units 05:08 WBC 12.3 H (4.3-11.1) K/mcL Hgb 12.5 D (11.5-15.4) g/dL Hct 39.1 (35.3-44.9) % Plt Count 233 (140-400) K/mcL Neutrophils # 9.6 H (1.6-8.9) K/mcL BMP 04/29/17 05:08 Sodium 140 Potassium 4.0 Chloride 108 H Carbon Dioxide 23 BUN 24 H Creatinine 0.80 Glucose 81 Calcium 8.8 - Attending Attestation I examined this patient and my medical decision-making was reviewed with the Resident Physician. I agree with the documented findings, disposition and treatment plan as described except to the extent set forth below.
[2017-04-28] MEDS ORDERED: Levofloxacin 750 MG/150 ML 750 MG/150 ML BAG IVPB SCH (14:00)
[2017-04-28] MEDS ORDERED: FLUoxetine HCl 10 MG CAPSULE PO SCH (14:00)
[2017-04-28] MEDS ORDERED: Spironolactone 25 MG TABLET PO SCH (14:00)
[2017-04-28] MEDS: Diltiazem CD (24hr) 300 MG CAPSULE PO SCH (14:50)
[2017-04-28] MEDS: Cyanocobalamin (B-12) 1,000 MCG TABLET PO SCH (14:50)
[2017-04-28] MEDS: BuPROPion XL (24 HR) 150 MG TABLET PO SCH (14:50)
[2017-04-28] MEDS: Furosemide 20 MG TABLET PO SCH (14:50)
[2017-04-28] MEDS: Folic Acid 1 MG TABLET PO SCH (14:50)
[2017-04-28] MEDS ORDERED: Acetaminophen 325 MG TABLET PO PRN (15:03)
[2017-04-28] MEDS ORDERED: Haloperidol Lactate 5 MG/ML VIAL ONE (16:01)
[2017-04-28] MEDS ORDERED: Haloperidol Lactate 5 MG/ML VIAL IM ONE (16:19)
[2017-04-28] MEDS ORDERED: levoFLOXacin 750 MG TABLET PO SCH (17:00)
--- NOTE | 2017-04-28 20:30 | Electrocardiograph Report ---
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
[2017-04-28] MEDS: Mirtazapine 15 MG TABLET PO SCH (22:00)
[2017-04-28] MEDS: Linezolid 600 MG TABLET PO SCH (22:01)
[2017-04-29] MEDS: *HR* Enoxaparin 40 MG/0.4 ML SYRINGE SQ SCH (04:50)
[2017-04-29 06:11] LABS: Basophils % 0.1 %; Eosinophils # 0.1 K/mcL (0.0-0.6); Eosinophils % 0.5 %; Hematocrit 39.1 % (35.3-44.9); Immature Granulocytes % 0.7 % (0-4); Lymphocytes # 1.6 K/mcL (0.6-4.6); Lymphocytes % 13.2 %; Mean Corpuscular Hemoglobin 26.8 pg (28.0-33.3); Mean Corpuscular Volume 83.9 fL (83.0-100.0); Mean Platelet Volume 12.1 fL (9.4-12.4); Monocytes # 0.9 K/mcL (0.0-1.3); Monocytes % 7.5 %; Neutrophils # 9.6 K/mcL (1.6-8.9); Platelet Count 233 K/mcL (140-400); Red Blood Count 4.66 M/mcL (3.82-4.97); Red Cell Distribution Width 16.2 % (11.5-14.5)
[2017-04-29 06:23] LABS: BUN/Creatinine Ratio 30 (6-26); Blood Urea Nitrogen 24 mg/dL (8-23); Calcium 8.8 mg/dL (8.6-10.3); Carbon Dioxide 23 mEq/L (23-29); Chloride 108 mEq/L (98-107); Glucose 81 mg/dL (70-105); Osmolality,Calculated 293 (280-300); Sodium 140 mEq/L (136-145); eGFR For African Americans > 60 (> 60); eGFR For Non-African Americans > 60 (> 60)
[2017-04-29 06:26] LABS: Hemoglobin 12.5 g/dL (11.5-15.4)
--- NOTE | 2017-04-29 07:18 | Electrocardiograph Report ---
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
[2017-04-29] MEDS: Folic Acid 1 MG TABLET PO SCH (08:53)
[2017-04-29] MEDS: Furosemide 20 MG TABLET PO SCH (08:53)
[2017-04-29] MEDS: Diltiazem CD (24hr) 300 MG CAPSULE PO SCH (08:53)
[2017-04-29] MEDS: Aspirin 81 MG TAB.CHEW PO SCH (08:53)
[2017-04-29] MEDS: Cholecalciferol (D-3) 1,000 UNIT TABLET PO SCH (08:53)
[2017-04-29] MEDS: Cyanocobalamin (B-12) 1,000 MCG TABLET PO SCH (08:53)
[2017-04-29] MEDS: Linezolid 600 MG TABLET PO SCH ×2 (08:53→22:40)
[2017-04-29] MEDS: BuPROPion XL (24 HR) 150 MG TABLET PO SCH (08:54)
[2017-04-29] MEDS: Latanoprost 2.5 ML BOTTLE BOTH EYES SCH ×2 (10:13→22:44)
--- NOTE | 2017-04-29 13:46 | Internal Med Progress Note ---
<MariposadelfinyahirBoom calderón - Last Filed: 04/29/17 14:24> Date of Encounter: 04/29/17 Time of Encounter: 08:50 - Assessment and plan (1) Pneumonia Current Visit: Yes Status: Acute Assessment and plan: Chest x-ray shows pulmonary edema versus pneumonia. White blood cell count has dropped from 20.5 to 12.3. Patient still refuses IV medication. Day #2 of antibiotics. - Continue Levaquin by mouth and Zyvox by mouth until blood cultures return. Qualifiers: Pneumonia type: due to unspecified organism Laterality: unspecified laterality Lung location: unspecified part of lung Qualified Code(s): J18.9 - Pneumonia, unspecified organism (2) Chest pain Current Visit: Yes Status: Acute Assessment and plan: EKG showed a-fib. EKG showed no acute changes when compared to last EKG. Troponin was negative. Patient has atypical chest pain symptoms. Does not seem as anginal related. - Denies any chest pain today. Qualifiers: Qualified Code(s): R07.9 - Chest pain, unspecified (3) Atrial fibrillation with RVR Current Visit: No Status: Acute Assessment and plan: EKG unchanged from previous one. - Continue home medication of Cardizem and metoprolol. (4) History of CHF (congestive heart failure) Current Visit: Yes Status: Acute (5) Sepsis Current Visit: Yes Status: Resolved Assessment and plan: Patient displays leukocytosis but pulse rate has normalized since yesterday. Currently does not meet criteria for sepsis. Qualifiers: Qualified Code(s): A41.9 - Sepsis, unspecified organism (6) DVT prophylaxis Current Visit: Yes Status: Acute Assessment and plan: Continue Lovenox 40 mg subcutaneously daily. - Subjective Interval history: Ms. Osorio is a 81 year old female with a PMH of A-fib, dementia, GERD, HLD, HTN, and valvular heart disease with a PSH of a pacemaker/AICD placement in 2009 that presents for SOB and chest pain. Patient says that today her shortness of breath has improved. She denies any cough, fever, chest pain, nausea, or vomiting. Patient still refuses any IV medications for now. - Constitutional Vitals: Temp Pulse Resp BP Pulse Ox 97.4 F L 98 18 127/101 97 04/29/17 10:48 04/29/17 10:48 04/29/17 10:48 04/29/17 10:48 04/29/17 10:48 General appearance: Present: A&O X 2, no acute distress, answers questions appropriately - ENT ENT exam: Present: mucous membranes moist - Respiratory Respiratory exam: Present: CTAB. Absent: accessory muscle use, rales, rhonchi, wheezes - Cardiovascular Cardiovascular exam: Present: irregular rhythm, tachycardia (Slight tachycardia. ) - GI/Abdominal GI/Abdominal exam: Present: normal bowel sounds, soft, no peritoneal signs. Absent: distended, guarding, rebound, tenderness - Extremities Exam Extremities exam: Present: full ROM, normal capillary refill, pedal edema (+1 pitting edema bilaterally), warm, radial pulses palpable and symmetrical. Absent: cyanotic, tenderness Internal Medicine: Result - Labs CBC & Chem 7: 04/29/17 05:08 04/29/17 05:08 Labs: Short CBC 04/29/17 Range/Units 05:08 WBC 12.3 H (4.3-11.1) K/mcL Hgb 12.5 D (11.5-15.4) g/dL Hct 39.1 (35.3-44.9) % Plt Count 233 (140-400) K/mcL Neutrophils # 9.6 H (1.6-8.9) K/mcL BMP 04/29/17 05:08 Sodium 140 Potassium 4.0 Chloride 108 H Carbon Dioxide 23 BUN 24 H Creatinine 0.80 Glucose 81 Calcium 8.8 - ABG Interpretation ABG results: PT/INR, D-dimer PT 10.9 Seconds (9.4-12.1) 04/28/17 08:29 Consult Discharge Plan - Plan Referrals: [facility] [place],Wu Vanessa MD [Primary Care Provider] - <Giovanny Hammonds - Last Filed: 04/29/17 15:13> Date of Encounter: 04/29/17 - Assessment and plan (1) Pneumonia Current Visit: Yes Status: Acute Qualifiers: Pneumonia type: due to unspecified organism Laterality: unspecified laterality Lung location: unspecified part of lung Qualified Code(s): J18.9 - Pneumonia, unspecified organism (2) Chest pain Current Visit: Yes Status: Acute Qualifiers: Qualified Code(s): R07.9 - Chest pain, unspecified (3) Atrial fibrillation with RVR Current Visit: No Status: Acute (4) History of CHF (congestive heart failure) Current Visit: Yes Status: Acute (5) Sepsis Current Visit: Yes Status: Resolved Qualifiers: Qualified Code(s): A41.9 - Sepsis, unspecified organism (6) DVT prophylaxis Current Visit: Yes Status: Acute - Constitutional Vitals: Temp Pulse Resp BP Pulse Ox 97.4 F L 98 18 127/101 97 04/29/17 10:48 04/29/17 10:48 04/29/17 10:48 04/29/17 10:48 04/29/17 10:48 Internal Medicine: Result - Labs CBC & Chem 7: 04/29/17 05:08 04/29/17 05:08 Labs: Short CBC 04/29/17 Range/Units 05:08 WBC 12.3 H (4.3-11.1) K/mcL Hgb 12.5 D (11.5-15.4) g/dL Hct 39.1 (35.3-44.9) % Plt Count 233 (140-400) K/mcL Neutrophils # 9.6 H (1.6-8.9) K/mcL BMP 04/29/17 05:08 Sodium 140 Potassium 4.0 Chloride 108 H Carbon Dioxide 23 BUN 24 H Creatinine 0.80 Glucose 81 Calcium 8.8 - ABG Interpretation ABG results: PT/INR, D-dimer PT 10.9 Seconds (9.4-12.1) 04/28/17 08:29 - Attending Attestation I have independently seen and examined this patient on 04/29/17 Ms. Osorio is a 81 year old female with a PMH of A-fib, dementia, GERD, HLD, HTN, and valvular heart disease with a PSH of a pacemaker/AICD placement in 2009 She is admitted and being managed for CHFE, Pneumonia, chest pain. Patient is said to have refused IV medications and is being treated empirically with oral medications -levaquin and Zyvox. Her physical exam is remarkable for AAOX2 and trace pedal edema Her was at her bedside throughout eval lab and Imaging reviewed: BNP >1000, Flu swab is negative, leukocytosis is improving, CXR noted, blood culture is sent and pending Continue current management, she actually gained weight and fluid balance is slightly negative, ensure fluid restriction diet, discontinue zyvox after negative blood cultre rest as in resident physician's documentation
[2017-04-29] MEDS: Mirtazapine 15 MG TABLET PO SCH (22:41)
[2017-04-30 04:41] LABS: Basophils % 0.1 %; Eosinophils # 0.1 K/mcL (0.0-0.6); Eosinophils % 1.2 %; Hematocrit 37.4 % (35.3-44.9); Hemoglobin 11.9 g/dL (11.5-15.4); Immature Granulocytes % 0.5 % (0-4); Lymphocytes # 1.5 K/mcL (0.6-4.6); Lymphocytes % 14.9 %; Mean Corpuscular HGB Conc 31.8 g/dL (31.6-35.5); Mean Corpuscular Hemoglobin 26.8 pg (28.0-33.3); Mean Corpuscular Volume 84.2 fL (83.0-100.0); Mean Platelet Volume 11.7 fL (9.4-12.4); Monocytes # 0.7 K/mcL (0.0-1.3); Neutrophils # 7.8 K/mcL (1.6-8.9); Platelet Count 199 K/mcL (140-400); Red Blood Count 4.44 M/mcL (3.82-4.97); Segmented Neutrophils % 76.3 %
[2017-04-30 05:00] LABS: BUN/Creatinine Ratio 25 (6-26); Blood Urea Nitrogen 22 mg/dL (8-23); Calcium 8.9 mg/dL (8.6-10.3); Carbon Dioxide 25 mEq/L (23-29); Chloride 111 mEq/L (98-107); Glucose 96 mg/dL (70-105); Osmolality,Calculated 299 (280-300); Potassium 3.8 mEq/L (3.5-5.1); Sodium 143 mEq/L (136-145); eGFR For African Americans > 60 (> 60); eGFR For Non-African Americans > 60 (> 60)
[2017-04-30] MEDS: *HR* Enoxaparin 40 MG/0.4 ML SYRINGE SQ SCH (06:25)
[2017-04-30] MEDS: Cyanocobalamin (B-12) 1,000 MCG TABLET PO SCH (08:21)
[2017-04-30] MEDS: BuPROPion XL (24 HR) 150 MG TABLET PO SCH (08:21)
[2017-04-30] MEDS: Folic Acid 1 MG TABLET PO SCH (08:22)
[2017-04-30] MEDS: Aspirin 81 MG TAB.CHEW PO SCH (08:22)
[2017-04-30] MEDS: Linezolid 600 MG TABLET PO SCH (08:22)
[2017-04-30] MEDS: Furosemide 20 MG TABLET PO SCH (08:22)
[2017-04-30] MEDS: Cholecalciferol (D-3) 1,000 UNIT TABLET PO SCH (08:22)
[2017-04-30] MEDS: Diltiazem CD (24hr) 300 MG CAPSULE PO SCH (08:23)
--- NOTE | 2017-04-30 09:50 | Discharge Summary ---
<Robyn Ruano - Last Filed: 04/30/17 10:31> - NOTES TO OUTPATIENT PROVIDER Notes to Outpatient Provider: Ms. Osorio was admitted for sepsis secondary to pneumonia. Sepsis resolved and patient's respiratory symptoms improved. Patient is discharged home with 4 more days of levofloxacin for pneumonia. Orders not resulted at time of discharge: Pending orders 04/29/17 15:07 Culture,Respiratory [RM] Routine Date of Encounter: 04/30/17 Time of Encounter: 09:00 - Discharge Diagnosis (1) Pneumonia Priority: Primary Status: Acute Qualifiers: Pneumonia type: due to unspecified organism Laterality: unspecified laterality Lung location: unspecified part of lung Qualified Code(s): J18.9 - Pneumonia, unspecified organism (2) Sepsis Priority: Secondary Status: Resolved Qualifiers: Sepsis type: sepsis due to unspecified organism Qualified Code(s): A41.9 - Sepsis, unspecified organism (3) Atrial fibrillation with controlled ventricular rate Priority: Secondary Status: Chronic (4) History of CHF (congestive heart failure) Priority: Secondary Status: Acute Hospital course: Ms. Osorio is a 81 year old female with PMH of A-fib, dementia, GERD, HLD, HTN, valvular heart disease, s/p pacemaker/AICD placement in 2009. Patient presented with shortness of breath and chest pain. Patient was found to be tachycardic with WBC 20.5 in ED. CXR showed pulmonary vascular congestion and small bilateral pleural effusions with possible underlying atelectasis or infiltrates. Patient was admitted on 04/28/17 for sepsis secondary to pneumonia and started on levofloxacin and Zyvox (gram positive coverage for recent hospitalization in February 2017 and patient consistently refused IV medication throughout her hospital stay). Negative influenza antigens. Zyvox was discontinued on 04/30/17 given preliminarily no growth on blood cultures over 48 hours. On 04/30/17, patient's tachycardia resolved with WBC normalized. And patient denies fever, chills, shortness of breath, chest pain. Given patient improves clinically and remains hemodynamically stable, patient can be discharged home with 4 more days of levofloxacin (750 mg by mouth every 48 hours , 2 pills, no refill). Patient will need follow up with her primary care physician within a week regarding her hospitalization. Patient and her at bedside expressed their understanding and agreement with the discharge plan. All questions were answered. Discharge discussed with: patient, family - Time Spent with Patient Total time spent providing and/or coordinating discharge services: Greater than 30 minutes - Discharge Medications Prescriptions: levoFLOXacin [Levaquin] 750 mg PO Q48H #2 tablet Home Medications: Aspirin 81 mg PO DAILY 01/02/16 [History] Atorvastatin [Lipitor] 40 mg PO HS 01/02/16 [History] Bupropion HCl [Wellbutrin Xl] 300 mg PO QAM 01/02/16 [History] Calcium Carbonate/Vitamin D3 [Calcium 500-Vit D3 200 Caplet] 1 each PO DAILY [History] Cyanocobalamin (Vitamin B-12) [Vitamin B12] 1,000 mcg PO DAILY 01/02/16 [History ] Docusate [Colace] 100 mg PO DAILY PRN 01/02/16 [History] Folic Acid 0.8 mg PO DAILY 01/02/16 [History] Metoprolol [Lopressor] 75 mg PO BID 01/02/16 [History] Vit C/E/Zn/Coppr/Lutein/Zeaxan [Preservision Areds 2 Softgel] 1 cap PO BID 03/11 [History] Galantamine [Razadyne] 8 mg PO BID 03/13/17 [History] Diltiazem CD (24hr) [Cardizem CD] 300 mg PO DAILY 04/28/17 [History] Furosemide [Lasix] 20 mg PO DAILY 04/28/17 [History] Latanoprost [Xalatan] 1 drop BOTH EYES HS 04/28/17 [History] Lisinopril [Zestril] 5 mg PO DAILY 04/28/17 [History] Meclizine [Antivert] 25 mg PO PRN PRN 04/28/17 [History] Melatonin 10 mg PO HS 04/28/17 [History] Mirtazapine [Remeron] 15 mg PO HS 04/28/17 [History] Quetiapine Fumarate [Seroquel] 25 mg PO HS 04/28/17 [History] levoFLOXacin [Levaquin] 750 mg PO Q48H #2 tablet 04/30/17 [Rx] Allergies/Adverse Reactions: 3 Allergy/AdvReac Type Severity Reaction Status Date / Time No Known Allergies Allergy Verified 03/11/17 07:27 Date of admission: 04/28/17 18:57 Primary care physician: Wu Alxeandra MD Consults: 04/29/17 08:48 Consult to Nurse Navigator [CONS] Routine Comment: 04/30/17 09:46 Consult to Occupational Therapy [CONS] Stat Comment: Evaluate, develop and implement POC Reason for Consult: Difficulty ambulating Does patient have active BEDREST order?: No Is patient medically & hemodynamically stable?: Yes Consult to Physical Therapy [CONS] Stat Comment: Evaluate, develop and implement POC Reason for Consult: Difficulty ambulating Does patient have active BEDREST order?: No Is patient medically & hemodynamically stable?: Yes Discharging clinician: Robyn Ruano Anticipated date of discharge: 04/30/17 - Constitutional Vitals: Temp Pulse Resp BP Pulse Ox 97.5 F L 94 18 145/107 98 04/30/17 06:57 04/30/17 06:57 04/30/17 06:57 04/30/17 06:57 04/30/17 06:57 General appearance: Present: A&O X 2, no acute distress, answers questions appropriately - Head Head exam: Present: normal inspection - Eye Eye exam: Present: EOMI - Neck Neck exam general surgery: Present: normal inspection, supple, trachea midline - Respiratory Respiratory exam: Present: CTAB - Cardiovascular Cardiovascular exam: Present: RRR, +S1, +S2 - GI/Abdominal GI/Abdominal exam: Present: normal bowel sounds, soft. Absent: tenderness - Extremities Exam Extremities exam: Absent: cyanotic, pedal edema - Neurological Exam Neurological exam: Present: alert, no focal deficits. Absent: facial droop, speech deficit - Skin Skin exam: Present: dry, warm - Patient Status Disposition: Home, Self-Care Condition: Fair Functional capacity at discharge: uses cane/walker Overall status at discharge: patient is progressing back to baseline - Discharge Instructions Instructions: Heart Failure (DC), Pneumonia (DC) Follow Up With: Wu Alexandra MD [Primary Care Provider] - 05/15/17 10:30 am (within a week) Additional Instructions: Please continue prescribed levofloxacin 750 mg by mouth every 48 hours (will be on 05/02 and 05/04). Please follow up with your primary care physician within a week regarding your hospitalization for pneumonia. - Diet and Activity Activity: ambulate only with your walker, increase activity as tolerated Diet: advance to your usual diet <Giovanny Hammonds - Last Filed: 04/30/17 14:27> Orders not resulted at time of discharge: Pending orders 04/29/17 15:07 Culture,Respiratory [RM] Routine Date of Encounter: 04/30/17 - Discharge Diagnosis (1) Pneumonia Status: Acute Qualifiers: Pneumonia type: due to unspecified organism Laterality: unspecified laterality Lung location: unspecified part of lung Qualified Code(s): J18.9 - Pneumonia, unspecified organism (2) Chest pain Status: Acute (3) Atrial fibrillation with RVR Status: Acute (4) History of CHF (congestive heart failure) Status: Acute (5) Sepsis Status: Resolved Qualifiers: Sepsis type: sepsis due to unspecified organism Qualified Code(s): A41.9 - Sepsis, unspecified organism (6) DVT prophylaxis Status: Acute Hospital course: Ms. Osorio is a 81 year old female - Time Spent with Patient Total time spent providing and/or coordinating discharge services: Date of admission: 04/28/17 18:57 Primary care physician: Wu Alexandra MD Consults: 04/29/17 08:48 Consult to Nurse Navigator [CONS] Routine Comment: 04/30/17 09:46 Consult to Occupational Therapy [CONS] Stat Comment: Evaluate, develop and implement POC Reason for Consult: Difficulty ambulating Does patient have active BEDREST order?: No Is patient medically & hemodynamically stable?: Yes Consult to Physical Therapy [CONS] Stat Comment: Evaluate, develop and implement POC Reason for Consult: Difficulty ambulating Does patient have active BEDREST order?: No Is patient medically & hemodynamically stable?: Yes - Constitutional Vitals: Temp Pulse Resp BP Pulse Ox 97.1 F L 83 18 121/78 97 04/30/17 12:15 04/30/17 12:15 04/30/17 12:15 04/30/17 12:15 04/30/17 12:15 - Attending Attestation I examined this patient and my medical decision-making was reviewed with the Resident Physician. I agree with the documented findings, disposition and treatment plan as described except to the extent set forth below. Seen and examined at the bedside with her spouse Admitted and managed for sepsis secondary to Pneumonia, Afib with RVR, with prior hx of CHF Sepsis and Leukocytosis has resolved, blood culture is negative, renal function is at baseline, patient refused IV medications throughout her stay Her states she receives outpatient PT Safe to discharge home with spouse, she is at her baseline Rest as in the resident physician's documentation
[2017-04-30] MEDS ORDERED: levoFLOXacin 750 MG TABLET PO ONE (09:51)
[2017-04-30 15:27] VITALS: BP 100/81
== END 2017-04-30 16:40 | disposition home or self-care (01) | DRG 871 ==
LOC: 2NENU 08:09 → EMEROO 08:09 → 2NENU 12:08 → SUATTDRO 18:57
PROVIDERS: ADMIT Internal Medicine; ATTEND Internal Medicine

== ENCOUNTER 2021-02-02 09:48 | Inpatient (IN) ==
[2021-02-02 10:29] LABS: Basophils % 0.2 %; Hematocrit 46.1 % (35.3-44.9); Hemoglobin 14.4 g/dL (11.5-15.4); Immature Granulocytes % 0.5 % (0-4); Lymphocytes # 1.1 K/mcL (0.6-4.6); Lymphocytes % 6.8 %; Mean Corpuscular HGB Conc 31.2 g/dL (31.6-35.5); Mean Corpuscular Hemoglobin 27.4 pg (28.0-33.3); Mean Corpuscular Volume 87.8 fL (83.0-100.0); Mean Platelet Volume 11.3 fL (9.4-12.4); Monocytes # 0.6 K/mcL (0.0-1.3); Neutrophils # 13.8 K/mcL (1.6-8.9); Platelet Count 355 K/mcL (140-400); Red Blood Count 5.25 M/mcL (3.82-4.97); Red Cell Distribution Width 15.1 % (11.5-14.5); Segmented Neutrophils % 88.5 %; White Blood Count 15.5 K/mcL (4.3-11.1)
[2021-02-02 10:49] LABS: Alanine Aminotransferase 18 Units/L (7-52); Albumin 4.1 g/dL (3.5-5.7); Albumin/Globulin Ratio 1.3 (1.1-2.2); Alkaline Phosphatase 104 Units/L (34-104); Aspartate Amino Transferase 23 Units/L (13-39); BUN/Creatinine Ratio 25 (6-26); Bilirubin,Total 0.9 mg/dL (0.3-1.0); Blood Urea Nitrogen 24 mg/dL (8-23); Calcium 9.5 mg/dL (8.6-10.3); Carbon Dioxide 23 mEq/L (23-29); Chloride 101 mEq/L (98-107); Globulin 3.2 g/dL (2.4-3.5); Glucose 183 mg/dL (70-105); Osmolality,Calculated 293 (280-300); Potassium 4.7 mEq/L (3.5-5.1); Sodium 137 mEq/L (136-145); Total Protein 7.3 g/dL (6.4-8.9); eGFR For African Americans > 60 (> 60); eGFR For Non-African Americans 56 (> 60)
[2021-02-02 11:24] LABS: Troponin I 0.04 ng/mL (< 0.04)
[2021-02-02] MEDS ORDERED: Nitroglycerin 0.4 MG TAB.SUBL SL STA (11:36)
[2021-02-02] MEDS ORDERED: Furosemide 40 MG/4 ML VIAL IVP ONE (11:36)
[2021-02-02] MEDS ORDERED: cefTRIAXone 1,000 MG in 0.9 % Sodium Chloride Mini Bag 100 ML IVPB ONE (11:57)
[2021-02-02] MEDS ORDERED: Naloxone 0.4 MG/ML INJ IVP PRN (12:30)
[2021-02-02] MEDS ORDERED: *HR* Metoprolol 5 MG/5 ML VIAL IVP ONE ×4 (12:33→22:01)
[2021-02-02 13:15] LABS: Influenza A PCR Negative (Negative); Influenza B PCR Negative (Negative); Resp. Syncytial Virus PCR Negative (Negative)
[2021-02-02 13:17] LABS: SARS-CoV-2 by PCR (In House) Negative (Negative)
[2021-02-02] MEDS ORDERED: Haloperidol Lactate 5 MG/ML VIAL IVP ONE (16:43)
[2021-02-02] MEDS ORDERED: Acetaminophen 325 MG TABLET PO ONE (17:12)
[2021-02-02] MEDS: traZODone 50 MG TABLET PO SCH (20:26)
[2021-02-02] MEDS: QUEtiapine Fumarate 25 MG TABLET PO SCH (20:38)
[2021-02-03] MEDS ORDERED: Haloperidol Lactate 5 MG/ML VIAL IVP ONE (00:08)
[2021-02-03] MEDS: DilTIAZem 50 MG/50 ML IV.SOLN IVC SCH ×3 (00:09→18:22)
[2021-02-03 02:12] LABS: Basophils # 0.1 K/mcL (0.0-0.2); Basophils % 0.3 %; Eosinophils % 0.1 %; Hematocrit 42.6 % (35.3-44.9); Hemoglobin 13.3 g/dL (11.5-15.4); Immature Granulocytes % 0.6 % (0-4); Lymphocytes # 1.4 K/mcL (0.6-4.6); Lymphocytes % 7.5 %; Mean Corpuscular HGB Conc 31.2 g/dL (31.6-35.5); Mean Corpuscular Hemoglobin 27.4 pg (28.0-33.3); Mean Corpuscular Volume 87.7 fL (83.0-100.0); Mean Platelet Volume 11.2 fL (9.4-12.4); Monocytes # 1.2 K/mcL (0.0-1.3); Monocytes % 6.4 %; Neutrophils # 16.4 K/mcL (1.6-8.9); Platelet Count 305 K/mcL (140-400); Red Blood Count 4.86 M/mcL (3.82-4.97); Red Cell Distribution Width 14.9 % (11.5-14.5); Segmented Neutrophils % 85.1 %; White Blood Count 19.3 K/mcL (4.3-11.1)
[2021-02-03 02:35] LABS: BUN/Creatinine Ratio 31 (6-26); Blood Urea Nitrogen 31 mg/dL (8-23); Calcium 8.8 mg/dL (8.6-10.3); Carbon Dioxide 18 mEq/L (23-29); Chloride 104 mEq/L (98-107); Glucose 146 mg/dL (70-105); Osmolality,Calculated 293 (280-300); Potassium 4.1 mEq/L (3.5-5.1); Sodium 137 mEq/L (136-145); eGFR For African Americans > 60 (> 60); eGFR For Non-African Americans 52 (> 60)
[2021-02-03] MEDS ORDERED: *HR* Metoprolol 5 MG/5 ML VIAL IVP ONE ×2 (03:08→05:23)
[2021-02-03] MEDS: Furosemide 40 MG/4 ML VIAL IVP SCH (06:16)
[2021-02-03] MEDS: FLUoxetine 20 MG CAPSULE PO SCH (08:29)
[2021-02-03] MEDS: cefTRIAXone 2,000 MG in Water for inj. (sterile) 10 ML IVP SCH (08:29)
[2021-02-03] MEDS ORDERED: Metoprolol XL (24 HR) Succ 50 MG TAB.ER.24H PO SCH (09:00)
[2021-02-03] MEDS ORDERED: Metoprolol XL (24 HR) Succ 50 MG TAB.ER.24H PO ONE (09:00)
[2021-02-03 09:01] LABS: Bacteria,Urine Few per hpf (None-Few); Bilirubin,Urine Negative (Negative); Blood,Urine Negative (Negative); Clarity,Urine Turbid (Clear); Color,Urine Yellow (Yellow); Glucose,Urine (UA) Normal (Normal); Hyaline Casts,Urine Many per lpf (None Seen); Ketones,Urine Trace mg/dL (Negative); Leukocyte Esterase,Urine Large (Negative); Mucus,Urine Few per lpf (None-Few); Nitrite,Urine Negative (Negative); Protein,Urine 30 mg/dL (Neg-Trace); Specific Gravity,Urine 1.018 (1.010-1.025); Squamous Epithelial Cell,Urine Moderate per hpf (None-Few); Urobilinogen,Urine Normal (Normal); WBC,Urine 30-50 per hpf (0-3)
[2021-02-03] MEDS ORDERED: Isovue-370 500 ML BOTTLE IVP ONE (11:58)
[2021-02-03] MEDS ORDERED: DilTIAZem CD (24hr) 300 MG CAP.ER.24H PO ONE (16:03)
[2021-02-03 17:20] LABS: ABG Base Excess -3 mEq/L (-2 to 3); ABG HCO3 17 mEq/L (21-27); ABG Oxygen Saturation 92 % (95-98); ABG PCO2 20 mmHg (35-45); ABG PH 7.55 pH Units (7.32-7.45); ABG PO2 53 mmHg (85-104); ABG TCO2 18 mEq/L (20-26)
[2021-02-03] MEDS: *HR* Heparin 5,000 UNIT/ML VIAL SQ SCH ×2 (17:21→20:21)
[2021-02-03 18:36] LABS: ABG Base Excess -1 mEq/L (-2 to 3); ABG HCO3 20 mEq/L (21-27); ABG Oxygen Saturation 99 % (95-98); ABG PCO2 25 mmHg (35-45); ABG PH 7.52 pH Units (7.32-7.45); ABG PO2 99 mmHg (85-104); ABG TCO2 21 mEq/L (20-26)
[2021-02-03] MEDS: traZODone 50 MG TABLET PO SCH (20:21)
[2021-02-03] MEDS: QUEtiapine Fumarate 25 MG TABLET PO SCH (20:21)
[2021-02-04] MEDS ORDERED: *HR* LORazepam 2 MG/ML VIAL IVP ONE ×2 (03:19→22:34)
[2021-02-04] MEDS: *HR* Heparin 5,000 UNIT/ML VIAL SQ SCH ×3 (05:36→20:12)
[2021-02-04] MEDS ORDERED: Haloperidol Lactate 5 MG/ML VIAL IVP ONE (07:43)
[2021-02-04] MEDS: Furosemide 40 MG/4 ML VIAL IVP SCH (08:46)
[2021-02-04] MEDS: cefTRIAXone 2,000 MG in Water for inj. (sterile) 10 ML IVP SCH (08:47)
[2021-02-04] MEDS: DilTIAZem 50 MG/50 ML IV.SOLN IVC SCH (08:55)
[2021-02-04] MEDS: Folic Acid 1 MG TABLET PO SCH (08:57)
[2021-02-04] MEDS: BuPROPion XL (24 HR) 150 MG TABLET PO SCH (08:58)
[2021-02-04] MEDS: Aspirin Enteric Coated 81 MG Tablet PO SCH (08:58)
[2021-02-04] MEDS: Metoprolol XL (24 HR) Succ 50 MG TAB.ER.24H PO SCH (08:58)
[2021-02-04] MEDS: FLUoxetine 20 MG CAPSULE PO SCH (08:59)
[2021-02-04] MEDS ORDERED: DilTIAZem CD (24hr) 300 MG CAP.ER.24H PO SCH (09:00)
[2021-02-04 16:36] LABS: Appearance of Pleural Fl Hazy (Clear); RBC,Pleural Fluid 4000 RBC/mcL
[2021-02-04 16:47] LABS: ABG Base Excess 3 mEq/L (-2 to 3); ABG HCO3 25 mEq/L (21-27); ABG Oxygen Saturation 94 % (95-98); ABG PCO2 33 mmHg (35-45); ABG PO2 64 mmHg (85-104); ABG TCO2 26 mEq/L (20-26)
[2021-02-04 17:00] LABS: Basophils,Pleural Fluid 0 %; Eosinophils,Pleural Fluid 0 %
[2021-02-04 18:21] LABS: Basophils % 0.1 %; Eosinophils # 0.1 K/mcL (0.0-0.6); Eosinophils % 0.5 %; Hematocrit 37.5 % (35.3-44.9); Hemoglobin 12.1 g/dL (11.5-15.4); Immature Granulocytes % 0.4 % (0-4); Lymphocytes % 7.1 %; Mean Corpuscular HGB Conc 32.3 g/dL (31.6-35.5); Mean Corpuscular Hemoglobin 28.1 pg (28.0-33.3); Mean Corpuscular Volume 87.2 fL (83.0-100.0); Mean Platelet Volume 11.5 fL (9.4-12.4); Monocytes # 0.7 K/mcL (0.0-1.3); Neutrophils # 12.3 K/mcL (1.6-8.9); Platelet Count 245 K/mcL (140-400); Segmented Neutrophils % 86.9 %; White Blood Count 14.2 K/mcL (4.3-11.1)
[2021-02-04 18:45] LABS: BUN/Creatinine Ratio 33 (6-26); Blood Urea Nitrogen 29 mg/dL (8-23); Calcium 8.3 mg/dL (8.6-10.3); Carbon Dioxide 24 mEq/L (23-29); Chloride 102 mEq/L (98-107); Glucose 111 mg/dL (70-105); Lactate Dehydrogenase 213 Units/L (140-271); Magnesium 2.3 mg/dL (1.6-2.6); Osmolality,Calculated 293 (280-300); Phosphorous 2.6 mg/dL (2.7-4.5); Potassium 3.1 mEq/L (3.5-5.1); Sodium 138 mEq/L (136-145); Total Protein 6.2 g/dL (6.4-8.9); eGFR For African Americans > 60 (> 60); eGFR For Non-African Americans 60 (> 60)
[2021-02-04] MEDS: QUEtiapine Fumarate 25 MG TABLET PO SCH (20:11)
[2021-02-04] MEDS: traZODone 50 MG TABLET PO SCH ×2 (20:11→20:32)
[2021-02-04] MEDS: Latanoprost 2.5 ML BOTTLE BOTH EYES SCH (20:32)
[2021-02-05] MEDS ORDERED: *HR* LORazepam 2 MG/ML VIAL IVP ONE ×2 (04:49→22:22)
[2021-02-05] MEDS: *HR* Heparin 5,000 UNIT/ML VIAL SQ SCH ×3 (05:00→20:42)
[2021-02-05] MEDS: Doxycycline 100 MG in 0.9 % Sodium Chloride Mini Bag 100 ML IVPB SCH ×2 (05:04→18:04)
[2021-02-05] MEDS: cefTRIAXone 2,000 MG in Water for inj. (sterile) 10 ML IVP SCH (11:07)
[2021-02-05] MEDS: Furosemide 40 MG/4 ML VIAL IVP SCH (11:09)
[2021-02-05] MEDS: Metoprolol XL (24 HR) Succ 50 MG TAB.ER.24H PO SCH (11:12)
[2021-02-05] MEDS: DilTIAZem CD (24hr) 180 MG CAP.ER.24H PO SCH (11:13)
[2021-02-05] MEDS: Folic Acid 1 MG TABLET PO SCH (11:14)
[2021-02-05] MEDS: Aspirin Enteric Coated 81 MG Tablet PO SCH (11:14)
[2021-02-05] MEDS: BuPROPion XL (24 HR) 150 MG TABLET PO SCH (11:15)
[2021-02-05] MEDS: FLUoxetine 20 MG CAPSULE PO SCH (11:27)
[2021-02-05 13:52] LABS: Basophils % 0.3 %; Eosinophils # 0.2 K/mcL (0.0-0.6); Eosinophils % 1.2 %; Hematocrit 39.7 % (35.3-44.9); Immature Granulocytes % 0.4 % (0-4); Lymphocytes # 0.8 K/mcL (0.6-4.6); Lymphocytes % 5.7 %; Mean Corpuscular HGB Conc 32.7 g/dL (31.6-35.5); Mean Corpuscular Hemoglobin 28.5 pg (28.0-33.3); Mean Corpuscular Volume 87.1 fL (83.0-100.0); Mean Platelet Volume 11.2 fL (9.4-12.4); Monocytes # 0.8 K/mcL (0.0-1.3); Monocytes % 5.5 %; Platelet Count 231 K/mcL (140-400); Red Blood Count 4.56 M/mcL (3.82-4.97); Segmented Neutrophils % 86.9 %; White Blood Count 13.8 K/mcL (4.3-11.1)
[2021-02-05 14:11] LABS: BUN/Creatinine Ratio 23 (6-26); Blood Urea Nitrogen 18 mg/dL (8-23); Calcium 8.7 mg/dL (8.6-10.3); Carbon Dioxide 27 mEq/L (23-29); Chloride 102 mEq/L (98-107); Glucose 127 mg/dL (70-105); Osmolality,Calculated 293 (280-300); Phosphorous 2.2 mg/dL (2.7-4.5); Potassium 3.1 mEq/L (3.5-5.1); Sodium 140 mEq/L (136-145); eGFR For African Americans > 60 (> 60); eGFR For Non-African Americans > 60 (> 60)
[2021-02-05] MEDS ORDERED: Haloperidol Lactate 5 MG/ML VIAL IVP PRN (16:26)
[2021-02-05] MEDS: QUEtiapine Fumarate 25 MG TABLET PO SCH (20:33)
[2021-02-05] MEDS: traZODone 50 MG TABLET PO SCH (20:34)
[2021-02-05] MEDS: Latanoprost 2.5 ML BOTTLE BOTH EYES SCH (20:42)
[2021-02-06] MEDS: Doxycycline 100 MG in 0.9 % Sodium Chloride Mini Bag 100 ML IVPB SCH (06:34)
[2021-02-06] MEDS: *HR* Heparin 5,000 UNIT/ML VIAL SQ SCH ×2 (06:38→12:42)
[2021-02-06 09:35] LABS: BUN/Creatinine Ratio 22 (6-26); Blood Urea Nitrogen 14 mg/dL (8-23); Calcium 8.8 mg/dL (8.6-10.3); Carbon Dioxide 25 mEq/L (23-29); Chloride 106 mEq/L (98-107); Glucose 115 mg/dL (70-105); Osmolality,Calculated 291 (280-300); Phosphorous 2.2 mg/dL (2.7-4.5); Potassium 3.9 mEq/L (3.5-5.1); Sodium 140 mEq/L (136-145); eGFR For African Americans > 60 (> 60); eGFR For Non-African Americans > 60 (> 60)
[2021-02-06] MEDS: FLUoxetine 20 MG CAPSULE PO SCH (10:04)
[2021-02-06] MEDS: Metoprolol XL (24 HR) Succ 50 MG TAB.ER.24H PO SCH (10:04)
[2021-02-06] MEDS: BuPROPion XL (24 HR) 150 MG TABLET PO SCH (10:04)
[2021-02-06] MEDS: DilTIAZem CD (24hr) 180 MG CAP.ER.24H PO SCH (10:04)
[2021-02-06] MEDS: Aspirin Enteric Coated 81 MG Tablet PO SCH (10:04)
[2021-02-06] MEDS: Folic Acid 1 MG TABLET PO SCH (10:05)
[2021-02-06] MEDS: cefTRIAXone 2,000 MG in Water for inj. (sterile) 10 ML IVP SCH (10:05)
[2021-02-06] MEDS: Furosemide 40 MG/4 ML VIAL IVP SCH (10:05)
[2021-02-06 12:57] VITALS: BP 136/84; PULSE 112; TEMP 98.1; O2SAT 95
== END 2021-02-06 13:00 | disposition home health service (06) | DRG 871 ==
LOC: EMEROOARM 09:48 → 3BNU 09:48 → SUATTDRO 12:54 → 3BNU 14:25
PROVIDERS: ADMIT Internal Medicine; ATTEND Internal Medicine

== ENCOUNTER 2021-03-04 12:03 | Inpatient (IN) ==
[2021-03-04] MEDS ORDERED: Amiodarone Premix 150 MG/100 ML BAG IVPB ONE (14:30)
[2021-03-04] MEDS ORDERED: Aspirin 81 MG TAB.CHEW PO ONE (14:37)
[2021-03-04] MEDS ORDERED: 0.9 % Sodium Chloride 500 ML IVC ONE (14:37)
[2021-03-04 14:54] LABS: Basophils % 0.1 %; Hematocrit 41.8 % (35.3-44.9); Hemoglobin 13.4 g/dL (11.5-15.4); Immature Granulocytes % 0.6 % (0-4); Lymphocytes # 1.1 K/mcL (0.6-4.6); Lymphocytes % 6.6 %; Mean Corpuscular HGB Conc 32.1 g/dL (31.6-35.5); Mean Corpuscular Hemoglobin 28.2 pg (28.0-33.3); Mean Corpuscular Volume 87.8 fL (83.0-100.0); Mean Platelet Volume 11.8 fL (9.4-12.4); Monocytes % 6.1 %; Neutrophils # 14.7 K/mcL (1.6-8.9); Platelet Count 297 K/mcL (140-400); Red Blood Count 4.76 M/mcL (3.82-4.97); Red Cell Distribution Width 15.9 % (11.5-14.5); Segmented Neutrophils % 86.6 %
[2021-03-04] MEDS: *HR* Metoprolol 5 MG/5 ML VIAL IVP ONE ×2 (15:01→17:21)
[2021-03-04 15:02] LABS: INR 1.1; Prothrombin Time 12.8 Seconds (9.4-12.1)
[2021-03-04 15:04] LABS: Activated Partial Thrombo Time 26.2 Seconds (26.0-36.0)
[2021-03-04 15:08] LABS: Albumin 3.9 g/dL (3.5-5.7); Albumin/Globulin Ratio 1.3 (1.1-2.2); Bilirubin,Direct 0.2 mg/dL (0.0-0.2); Bilirubin,Indirect 0.9 mg/dL (0.0-1.0); Bilirubin,Total 1.1 mg/dL (0.3-1.0); Calcium 9.5 mg/dL (8.6-10.3); Globulin 3.1 g/dL (2.4-3.5); Potassium 4.4 mEq/L (3.5-5.1); Troponin I 0.04 ng/mL (< 0.04)
[2021-03-04 15:46] LABS: Bacteria,Urine Few per hpf (None-Few); Bilirubin,Urine Negative (Negative); Blood,Urine Negative (Negative); Clarity,Urine Turbid (Clear); Color,Urine Yellow (Yellow); Glucose,Urine (UA) Normal (Normal); Hyaline Casts,Urine Moderate per lpf (None Seen); Ketones,Urine 10 mg/dL (Negative); Leukocyte Esterase,Urine Large (Negative); Nitrite,Urine Negative (Negative); PH,Urine 5.5 pH Units (5.0-8.0); Protein,Urine 50 mg/dL (Neg-Trace); RBC,Urine 0-3 per hpf (0-3); Renal Epithelial Cells,Urine Few per hpf (None-Few); Squamous Epithelial Cell,Urine Moderate per hpf (None-Few); Transitional Epi Cells,Urine Few per hpf (None-Few); Urobilinogen,Urine Normal (Normal); WBC,Urine 50-100 per hpf (0-3)
[2021-03-04 16:02] LABS: Influenza A PCR Negative (Negative); Influenza B PCR Negative (Negative); Resp. Syncytial Virus PCR Negative (Negative); SARS-CoV-2 by PCR (In House) Negative (Negative)
[2021-03-04] MEDS ORDERED: *HR* Metoprolol 5 MG/5 ML VIAL IVP ONE (16:51)
[2021-03-04] MEDS ORDERED: *HR* LORazepam 2 MG/ML VIAL IVP ONE (16:56)
[2021-03-04] MEDS ORDERED: Isovue-370 500 ML BOTTLE IVP ONE (17:00)
[2021-03-04] MEDS ORDERED: cefTRIAXone 1,000 MG in 0.9 % Sodium Chloride Mini Bag 100 ML IVPB ONE (17:02)
[2021-03-04] MEDS: DilTIAZem 50 MG/50 ML IV.SOLN IVC SCH (18:35)
[2021-03-04] MEDS ORDERED: Ondansetron 4 MG/2 ML VIAL IVP PRN (20:01)
[2021-03-04] MEDS ORDERED: Acetaminophen 325 MG TABLET PO PRN (20:01)
[2021-03-04] MEDS ORDERED: Naloxone 0.4 MG/ML INJ IVP PRN (20:01)
[2021-03-04] MEDS ORDERED: Ipratropium/Albuterol Neb 3 ML IH PRN (20:06)
[2021-03-04] MEDS ORDERED: Doxycycline 100 MG in 0.9 % Sodium Chloride Mini Bag 100 ML IVPB SCH (20:11)
[2021-03-04] MEDS ORDERED: 0.9 % Sodium Chloride 1,000 ML IVC SCH (20:15)
[2021-03-04] MEDS ORDERED: *HR* Metoprolol 5 MG/5 ML VIAL IVP PRN (20:35)
[2021-03-04] MEDS: *HR* LORazepam 2 MG/ML VIAL IVP PRN (21:18)
[2021-03-04] MEDS: Doxycycline 100 MG in 0.9 % Sodium Chloride Mini Bag 100 ML IVPB SCH (23:14)
[2021-03-05] MEDS: *HR* LORazepam 2 MG/ML VIAL IVP PRN ×3 (02:27→14:42)
[2021-03-05 02:30] LABS: Basophils % 0.2 %; Hematocrit 40.2 % (35.3-44.9); Hemoglobin 12.6 g/dL (11.5-15.4); Immature Granulocytes % 0.7 % (0-4); Lymphocytes # 1.2 K/mcL (0.6-4.6); Mean Corpuscular HGB Conc 31.3 g/dL (31.6-35.5); Mean Corpuscular Hemoglobin 27.7 pg (28.0-33.3); Mean Corpuscular Volume 88.4 fL (83.0-100.0); Mean Platelet Volume 12.2 fL (9.4-12.4); Monocytes # 1.5 K/mcL (0.0-1.3); Monocytes % 7.6 %; Neutrophils # 16.9 K/mcL (1.6-8.9); Platelet Count 254 K/mcL (140-400); Red Blood Count 4.55 M/mcL (3.82-4.97); Red Cell Distribution Width 16.1 % (11.5-14.5); Segmented Neutrophils % 85.5 %; White Blood Count 19.7 K/mcL (4.3-11.1)
[2021-03-05] MEDS: DilTIAZem 50 MG/50 ML IV.SOLN IVC SCH ×2 (02:38→10:20)
[2021-03-05 02:54] LABS: Calcium 8.9 mg/dL (8.6-10.3); Magnesium 2.4 mg/dL (1.6-2.6); Potassium 4.3 mEq/L (3.5-5.1)
[2021-03-05 03:03] LABS: Thyroid Stimulating Hormone 2.231 mcIU/mL (0.340-5.600)
[2021-03-05] MEDS ORDERED: Furosemide 20 MG/2 ML VIAL IVP ONE ×2 (05:19→13:01)
[2021-03-05] MEDS: cefTRIAXone 1,000 MG in 0.9 % Sodium Chloride Mini Bag 100 ML IVPB SCH (09:23)
[2021-03-05] MEDS: Doxycycline 100 MG in 0.9 % Sodium Chloride Mini Bag 100 ML IVPB SCH ×2 (09:24→21:09)
[2021-03-05] MEDS: Morphine Sulfate 2 MG/ML SYRINGE IVP PRN ×3 (10:34→21:08)
[2021-03-05] MEDS ORDERED: traZODone 50 MG TABLET PO SCH (21:00)
[2021-03-05] MEDS ORDERED: Latanoprost 2.5 ML BOTTLE BOTH EYES SCH (21:00)
[2021-03-06] MEDS: Morphine Sulfate 2 MG/ML SYRINGE IVP PRN (02:52)
[2021-03-06] MEDS ORDERED: Haloperidol Lactate 5 MG/ML VIAL IVP PRN (07:45)
[2021-03-06] MEDS ORDERED: Bisacodyl 10 MG RECTAL SUPPOSITORY RC PRN (07:45)
[2021-03-06] MEDS ORDERED: Atropine Sulfate 1% 40 DROP/2 ML BOTTLE SL PRN (07:45)
[2021-03-06] MEDS ORDERED: Acetaminophen 650 MG RECTAL SUPP RC PRN (07:45)
[2021-03-06] MEDS ORDERED: FLUoxetine 20 MG CAPSULE PO SCH (09:00)
[2021-03-06] MEDS ORDERED: Metoprolol XL (24 HR) Succ 50 MG TAB.ER.24H PO SCH (09:00)
[2021-03-06] MEDS ORDERED: DilTIAZem CD (24hr) 180 MG CAP.ER.24H PO SCH (09:00)
[2021-03-06] MEDS ORDERED: Aspirin Enteric Coated 81 MG Tablet PO SCH (09:00)
[2021-03-06] MEDS ORDERED: BuPROPion XL (24 HR) 150 MG TABLET PO SCH (09:00)
[2021-03-06] MEDS: Doxycycline 100 MG in 0.9 % Sodium Chloride Mini Bag 100 ML IVPB SCH (10:02)
[2021-03-06] MEDS: cefTRIAXone 1,000 MG in 0.9 % Sodium Chloride Mini Bag 100 ML IVPB SCH (10:02)
[2021-03-06] MEDS ORDERED: Morphine Sulfate 2 MG/ML SYRINGE IVP PRN (10:12)
[2021-03-06 11:01] VITALS: BP 118/71; PULSE 114; TEMP 98.3; O2SAT 92
[2021-03-06] MEDS: Morphine Sulfate 2 MG/ML SYRINGE IVP SCH ×2 (11:36→16:19)
== END 2021-03-06 20:02 | disposition expired | DRG 291 ==
LOC: 2ANU 12:03 → EMEROOARM 12:03 → SUATTDRO 20:46 → 2ANU 21:01
PROVIDERS: ADMIT Internal Medicine; ATTEND Internal Medicine